=== PATIENT | female | born 1950 | race Caucasian/White ===

== ENCOUNTER 2017-09-13 08:40 | Outpatient (CLI) | payer MEDICARE, BC ==
--- NOTE | 2017-09-13 09:51 | RAD ---
LUMBAR SPINE THREE VIEWS: History: Low back pain. FINDINGS/IMPRESSION: No degenerative changes in the lumbar spine. No fracture, subluxation, or bony destruction is identif ied. POS: ADRIAN
== END 2017-09-13 08:41 | disposition home or self-care (01) ==
LOC: RAD-FRANK 08:40
PROVIDERS: ATTEND Nurse Practitioner Family
DX: M54.5 Low back pain (principal)
CPT/HCPCS: 72100

== ENCOUNTER 2018-02-08 08:57 | Outpatient (CLI) | payer MEDICARE, BC ==
--- NOTE | 2018-02-08 10:03 | RAD ---
PA AND LATERAL CHEST: History: Dyspnea on exertion. Comparison: 12-05-15 FINDINGS: The heart size is enlarged. There is obscuration of the right hemidiaphragm, also the diaphragm may b e slightly elevated. There is a right sided pleural effusion which is new as compared to the prior ex am. Some associated parenchymal change is probably atelectasis. The left lung is clear. IMPRESSION: 1. Cardiomegaly. 2. Development of some right sided pleural effusion and right lower lobe atelectasis. POS: C
== END 2018-02-08 08:58 | disposition home or self-care (01) ==
LOC: RAD-FRANK 08:57
PROVIDERS: ATTEND Nurse Practitioner Family
DX: R06.09 Other forms of dyspnea (principal); I51.7 Cardiomegaly; J90 Pleural effusion, not elsewhere classified; J98.11 Atelectasis
CPT/HCPCS: 71046

== ENCOUNTER 2018-02-09 06:00 | Inpatient (IN) | payer MEDICARE, BC ==
[2018-02-09 06:22] LABS: #Basophils 0.1 thou/uL (0.0-0.2); #Eosinphils 0.3 thou/uL (0.0-0.7); #Lymphocytes 1.7 thou/uL (1.20-3.40); #Monocytes 0.6 thou/uL (0.11-0.59); #Neutrophils 4.5 thou/uL (1.40-6.50); %Eosinophils 4.5 % (0.0-10.0); %Lymphocytes 23.6 % (21.0-51.0); %Monocytes 7.8 % (0.0-10.0); Mean Corpuscular HGB CONC 30.3 g/dL (32.0-36.0); Mean Corpuscular Hemoglobin 26.4 pg (27.0-31.0); Mean Corpuscular Volume 87.1 fL (78.0-98.0); Platelet Count 330 thou/uL (130-400); RBC Distribution Width 14.4 % (11.5-14.5); Red Blood Cell (RBC) Count 3.78 mill/uL (4.20-5.40); White Blood Cell (WBC) Count 7.2 thou/uL (4.8-10.8)
[2018-02-09 06:53] LABS: ALT (SGPT) 14 U/L (8-55); AST (SGOT) 19 U/L (5-34); Alkaline Phosphatase 117 U/L (40-150); Anion Gap 17 mmol/L (10-20); BUN (Urea Nitrogen) 8 mg/dL (9.8-20.1); Bilirubin, Total 0.4 mg/dL (0.2-1.2); Calc. Creatinine Clearance 0 mL/min (70-130); Calcium 9.3 mg/dL (7.8-10.44); Carbon Dioxide 24 mmol/L (23-31); Chloride 99 mmol/L (98-107); Estimated GFR-MDRD 43; Glucose 161 mg/dL (80-115); Sodium 136 mmol/L (136-145)
[2018-02-09 06:56] LABS: CKMB 1.2 ng/mL (0-6.6); Troponin I Less than 0.010 ng/mL (< 0.028)
[2018-02-09] MEDS ORDERED: Nitroglycerin 2% Ointment 1 INCH/1 GM Packet ONE (07:11)
[2018-02-09] MEDS ORDERED: Furosemide 40 MG/4 ML VIAL ONE (07:11)
--- NOTE | 2018-02-09 07:49 | RAD ---
PORTABLE CHEST: HISTORY: Dyspnea. COMPARISON: 02/08/2018. FINDINGS: Cardiomegaly. Vascular markings within normal range. Right-sided effusion again noted. No signific ant interval change noted. POS: H
[2018-02-09] MEDS ORDERED: HumaLOG 300 UNITS/3 ML VIAL SC PRN (08:25)
[2018-02-09] MEDS ORDERED: Dextrose 50% Abboject 50 ML SYRINGE SLOW IVP PRN (08:25)
[2018-02-09] MEDS ORDERED: Dextrose 5% in Water 1,000 ML IV PRN (08:25)
[2018-02-09] MEDS ORDERED: Benzonatate 100 MG CAP PO PRN (08:29)
[2018-02-09] MEDS ORDERED: Senokot 8.6 MG TAB PO PRN (08:29)
[2018-02-09] MEDS ORDERED: hydrALAZINE 20 MG/ML VIAL SLOW IVP PRN (08:29)
[2018-02-09] MEDS ORDERED: traMADol HCl 50 MG TAB PO PRN (08:29)
[2018-02-09] MEDS ORDERED: Nitroglycerin 0.4 MG TAB (25 Tab Bottle) SL PRN (08:29)
[2018-02-09] MEDS ORDERED: Mag-Al 1200 mg/1200 mg/30 ML UDCUP PO PRN (08:29)
[2018-02-09] MEDS ORDERED: cloNIDine 0.1 MG TAB PO PRN (08:29)
[2018-02-09] MEDS ORDERED: Lorazepam 1 MG TAB PO PRN (08:29)
[2018-02-09] MEDS ORDERED: Loratadine 10 MG TAB PO PRN (08:29)
[2018-02-09] MEDS ORDERED: Bisacodyl 5 MG TAB PO PRN (08:29)
[2018-02-09 09:51] LABS: Troponin I Less than 0.010 ng/mL (< 0.028)
[2018-02-09] MEDS: Enoxaparin Sodium 40 MG/0.4 ML SYRINGE SC SCH (10:51)
[2018-02-09 13:03] LABS: Troponin I Less than 0.010 ng/mL (< 0.028)
--- NOTE | 2018-02-09 13:32 | HP ---
DATE OF ADMISSION: 02/09/2018 PRIMARY CARE PHYSICIAN: JESUS Wolf PRIMARY INDUSTRIAL EQUIPMENT MECHANIC: Dr. Flaquito Sutton. PRIMARY ELECTRONIC PAGINATION SYSTEM OPERATOR: Dr. David. CHIEF COMPLAINT: Lower extremity swelling and chest pressure. HISTORY OF PRESENT ILLNESS: Ms. Peña is a very pleasant 67-year-old female with past medical hist ory of diabetes mellitus, hypertension, dyslipidemia, coronary artery disease as well as chronic diar bethel who presented to the ER with the above-mentioned complaint. History is mainly obtained by the p atient herself and electronic medical records have been reviewed. The patient was last admitted to [facility] facility more than over a year ago for diarrheal illness and dehydration. Ms. Peña reports that she has been doing fairly well since last year, but has been having chronic diarrhea again for the last month or so. She had one episode of blood in the stools. She is going a nywhere from once a day to multiple stools a day and they all loose watery. She has been seen by Dr. Sutton in the outpatient setting and some stool studies were done recently about a week ago. She went to see her primary care physician yesterday and the PCP found out that the patient had signi ficant swelling of her lower extremity in her face and she received a shot of Lasix and was instructe d to go to the emergency room yesterday. She came to the ER today as yesterday was her granddaughter 's birthday. She has been having some chest discomfort and heavy sensation in the chest for the last week or so and has noticed swelling in the last few days herself. She denies any other recent illne sses other than the diarrheal illness. No fever, chills, cough, orthopnea or PND. She has mild dysp esdras on exertion with ambulation. She has seen Dr. David about 1 year ago and has had 2 or 3 cardi ac catheterizations done in the past and reports that one of her blood vessels was blocked about 50%, but that was about 4 or 5 years ago. In the emergency room upon presentation, she was not hypoxic. Oxygen saturation was 100% on room air with blood pressure 142/86. EKG did not show any evidence of acute coronary syndrome or arrhythmias . Chest x-ray was rather unimpressive. She did have right-sided pleural effusion and cardiomegaly. Her lab showed normal cardiac enzymes, but her BNP was elevated to over 3000, which is a rather new for her. The patient was diagnosed with having congestive heart failure and was given Lasix. This i s a new symptom and diagnosis for the patient. She is being admitted for the same for now. PAST MEDICAL HISTORY: 1. Hypertension. 2. Dyslipidemia. 3. Diabetes mellitus type 2. 4. History of coronary artery disease. She does not have any cardiac stenting or bypass surgeries d one in the past. PAST SURGICAL HISTORY: Cholecystectomy, hysterectomy, gastric bypass surgery, and tonsillectomy. SOCIAL HISTORY: She lives alone at home, but her daughter lives very close by. She is otherwise ind ependent with ADLs and IADLs. She has no history of drug, tobacco or alcohol abuse. FAMILY HISTORY: Strong family history of heart disease. Mother had non-Hodgkin's lymphoma as well a s coronary artery disease. ALLERGIES: Include DARVON and DEMEROL. CURRENT MEDICATIONS: Not yet reconciled. As per the ER record, she is on the following medications: Metformin 1000 mg b.i.d., metoprolol succinate 25 once in the morning, Nexium 20 mg daily, aspirin 81 mg daily, Singulair 10 mg daily, iron 27 mg daily, CoQ10 daily, vitamin D3 daily, Onglyza 5 mg casey ly, amitriptyline 50 mg at bedtime, Zoloft 50 mg at bedtime, alprazolam 0.5 mg at bedtime, Zofran p.r .n., nitroglycerin sublingual p.r.n., ProAir p.r.n. inhalation. REVIEW OF SYSTEMS: A 12-point review of systems is done and is negative except for those mentioned i n the history and physical. LABORATORY DATA: CBC shows hemoglobin of 10, which is baseline for the patient, otherwise unremarkab le. Serum chemistry shows BUN 8, creatinine 1.23, blood sugar 161, troponin less than 0.010 x2 with a normal CK-MB. BNP is 3070. Chest x-ray by my review shows mild pulmonary vascular congestion, mil d to moderate right-sided pleural effusion and cardiomegaly. A 12-lead EKG by my review shows no arr hythmia, normal sinus rhythm is noticed. Nonspecific ST and T-wave changes are noticed. Evidence of LVH is noticed. PHYSICAL EXAMINATION: VITAL SIGNS: Most recent vital signs, temperature 98, pulse of 90, respirations 19, saturating 99% o n room air, blood pressure 115/85. GENERAL: No acute distress, awake, alert, oriented x3. She appears older than her stated age. HEENT: The patient has most of her teeth missing. Mucous membranes appear slightly dry. No orophar yngeal exudate or erythema. Head is normocephalic, atraumatic. Pupils equal, reactive to light and accommodation. NECK: Supple without any lymphadenopathy, JVD or bruit. CHEST: Evaluation shows some few basilar crackles on the left lung and decreased breath sound in the right lung base consistent with a pleural effusion. CARDIOVASCULAR: Regular rate and rhythm is regular without any murmur, rubs or gallops. ABDOMEN: Obese, soft, nontender, nondistended with positive bowel sounds. EXTREMITIES: Showed nonpitting edema bilaterally extending from her ankle to mid-calf. NEUROLOGIC: Nonfocal. SKIN: Free of any rashes or bruises. I feel warm and dry to touch. PSYCHIATRIC: Normal affect. IMPRESSION AND PLAN: 1. Acute congestive heart failure with right-sided pleural effusion and elevated BNP and symptoms of the same. At this time, the cause is unclear. It can be secondary to ischemic cardiomyopathy versu s possibly viral myocarditis given the recent diarrheal illness. No evidence of arrhythmia so far. She will be admitted and treated for congestive heart failure and we will get an echocardiogram. She will be diuresed with Lasix twice a day with close monitoring of I's and O's as well as renal status . We will continue to trend serial cardiac enzymes, though the likelihood of ACS is very low at this time. We will restart her home medication of aspirin and beta sp. Avoid ANGEL inhibitors at thi s time given acute renal insufficiency. We will consult Heart Failure team in the hospital as well a s dietitian. 2. Acute renal insufficiency, likely due to recent diarrheal illness. We will monitor her renal fun ction closely given the fact that she will be on diuretics for the next few days. Avoid any nephroto xic medications. 3. Acute on chronic diarrhea. The patient is under the care of Dr. Sutton and we will try to get the results of her most recent stool studies from his office. Currently, continue symptomatic treatment. The patient has no recent antibiotic use or recent travel. 4. Chronic anemia, microcytic and hypochromic in nature. Suspect iron deficiency anemia due to diet robert insufficiency. We will check her iron status as well as vitamin B12 and folic acid levels. Supp lement as indicated. 5. Diabetes mellitus type 2. We will put her on insulin sliding scale and do Accu-Cheks a.c. and at bedtime. Restart home medications with oral hypoglycemics once confirmed. 6. Hypertension, currently controlled. Once again, we will restart the home medications once confir med. 7. Code status: FULL. Resuscitation discussed with the patient in detail. 8. Deep venous thrombosis and gastrointestinal prophylaxis and p.r.n. medication orders. DISPOSITION: Ms. Peña is currently being admitted to the hospital with new onset of congestive he art failure. Estimated length of stay at least is 2-3 midnight at this time. Further management juan manuel l depend upon her clinical course.
[2018-02-09] MEDS: Furosemide 40 MG/4 ML VIAL SLOW IVP SCH (13:40)
[2018-02-09 13:49] LABS: Bilirubin Negative (Negative); Blood, Urine Negative (Negative); Clarity CLEAR (Clear); Glucose, Urine (Dipstick) Negative (Negative); Leukocyte Negative (Negative); Nitrite Negative (Negative); Protein, Urine (Dipstick) Negative (Neg-Trace); Specific Gravity, Urine 1.003 (1.002-1.036); Urobilinogen 0.2 mg/dL (0.2-1.0); pH, Urine 5.5 (5.0-9.0)
[2018-02-09] MEDS: Acetaminophen 325 MG TAB PO PRN (15:40)
--- NOTE | 2018-02-09 15:43 | CON ---
DATE OF CONSULTATION: 02/09/2018 CARDIOLOGY CONSULTATION REASON FOR CONSULTATION: Lower extremity edema. PRIMARY CARPET LAYER: Casey David M.D. HISTORY OF PRESENT ILLNESS: Ms. Peña is a very pleasant 67-year-old white female who comes to the hospital for lower extremity edema and shortness of breath. She has noticed for the last 6 weeks of progressively worsening edema. About 2 weeks ago, she started to get much more short of breath and she could not lay down on her back. She thought this was all related to her diagnosis of COPD and sh e was trying to do the inhalers, but these would not work, so she decided to come in for further eval uation. She was found to have a very elevated BNP. She has already been given Lasix and her lower e xtremity edema and abdominal swelling has decreased significantly. Her breathing is still somewhat o f an issue, but she feels much better than she did when she came in. Cardiology is being consulted f or evaluation of possible LV dysfunction. Dr. David has followed her for many years now. She has had a several heart catheterizations in the past. The last one was performed several years ago by Honorio David and she had just moderate disease on branching vessels. The last time she had a stress t est was in the office actually about a year ago 03/29/2017 and at that time, she had an EF of about 4 3%, but no reversible ischemia. She had been treated medically all this time. PAST MEDICAL HISTORY: 1. Hypertension. 2. Hyperlipidemia. 3. Type 2 diabetes. 4. Moderate coronary artery disease in the past. PAST SURGICAL HISTORY: 1. Cholecystectomy. 2. Hysterectomy. 3. Gastric bypass surgery. 4. Tonsillectomy. SOCIAL HISTORY: No alcohol, tobacco or drugs. FAMILY HISTORY: Heart disease positive in parents. OUTPATIENT MEDICATIONS: Include, 1. Metformin 1000 mg b.i.d. 2. Metoprolol succinate 25 mg a day. 3. Nexium 20 mg a day. 4. Aspirin 81 mg a day. 5. Singulair 10 mg a day. 6. Iron sulfate 27 mg a day. 7. Co-Q10. 8. Vitamin D3. 9. Onglyza 5 mg a day. 10. Amitriptyline 50 mg at bedtime. 11. Zoloft. 12. Alprazolam. 13. Zofran p.r.n. 14. Nitroglycerin sublingual p.r.n. 15. ProAir p.r.n. ALLERGIES: DARVON and DEMEROL. REVIEW OF SYSTEMS: A 12-point review of systems was done and it is all negative except stated in his tory of present illness. PHYSICAL EXAMINATION: VITAL SIGNS: Temperature 98.1, pulse 88, respiration rate 18, satting 95% on room air, blood pressur e 136/66. GENERAL: Awake, alert, oriented x3, in no distress. HEENT: Normocephalic. NECK: Supple. Cannot appreciate JVD due to body habitus. LUNGS: Have mild crackles at bilateral bases, but seemed to be mostly dry. ABDOMEN: Soft. EXTREMITIES: 1+ edema. SKIN: Warm and dry. LABORATORY DATA: Laboratory work was reviewed. CBC with a white count of 7, hemoglobin 10.0, hemato crit of 32.9, platelet count of 330. Chemistries unremarkable except for BUN of 8, creatinine 1.23, which is above her baseline 0.9. GFR was 43, glucose of 161. Troponin is negative x3. BNP was 3000 . UA was unremarkable. IMAGING DATA: EKG was reviewed. Chest x-ray was reviewed, cardiomegaly with right-sided effusion. ASSESSMENT: 1. New onset systolic versus diastolic versus combined heart failure. 2. Chronic obstructive pulmonary disease. 3. History of coronary artery disease, moderate in the past. PLAN: 1. Agree with continued IV Lasix. Keep an eye on creatinine and make sure it is not go any higher, but feeling much better after diuresis. 2. We will get echocardiogram to assess LV function and valvular structures. 3. Further recommendations are depending results of echocardiogram. Thank you for letting us to participate in the care of your patient. Dr. David, her primary Cardi ology will follow up in the morning.
[2018-02-09] MEDS: ALPRAZolam 0.5 MG TAB PO SCH (21:09)
[2018-02-09] MEDS: Ondansetron HCl/PF 4 MG/2 ML Vial IVP PRN (21:12)
[2018-02-09] MEDS ORDERED: Amitriptyline HCl 25 MG TAB PO SCH (21:15)
[2018-02-10] MEDS ORDERED: Ondansetron HCl/PF 4 MG/2 ML Vial ONE (09:56)
[2018-02-10] MEDS ORDERED: Montelukast Sodium 10 mg Tablet ONE (09:57)
[2018-02-10 12:45] LABS: Anion Gap 16 mmol/L (10-20); BUN (Urea Nitrogen) 8 mg/dL (9.8-20.1); Calc. Creatinine Clearance 76 mL/min (70-130); Calcium 8.4 mg/dL (7.8-10.44); Carbon Dioxide 26 mmol/L (23-31); Chloride 96 mmol/L (98-107); Estimated GFR-MDRD 44; Glucose 126 mg/dL (80-115); Iron 34 ug/dL (50-170); Iron Binding Capacity, Total 369 mcg/dL (265-497); Potassium 3.6 mmol/L (3.5-5.1); Sodium 134 mmol/L (136-145)
[2018-02-10] MEDS ORDERED: Communication Order-Pharmacy FS SCH (13:00)
--- NOTE | 2018-02-10 14:40 | PDOC.PN ---
- Subjective Encounter Start Date: 02/10/18 Encounter Start Time: 12:21 Subjective: pt feels better. urinating a lot and breathing easier -: no chest pain - Objective Resuscitation Status: Resuscitation Status FULL:Full Resuscitation MAR Reviewed: Yes Vital Signs & Weight: Vital Signs (12 hours) Temp Pulse Resp BP Pulse Ox 02/10/18 07:36 97.6 F 92 18 118/59 L 94 L Weight Weight 241 lb 4 oz I&O: 02/09/18 02/10/18 02/11/18 06:59 06:59 06:59 Intake Total 1868 Output Total 2700 Balance -832 Result Diagrams: 02/10/18 03:30 02/10/18 03:30 Additional Labs: Accuchecks 02/09/18 02/09/18 02/09/18 20:50 17:05 12:19 POC Glucose 173 H 158 H 171 H Phys Exam - Physical Examination Constitutional: NAD HEENT: PERRLA, moist MMs, sclera anicteric, oral pharynx no lesions Neck: no nodes, no JVD, supple, full ROM Respiratory: no wheezing, no rales, no rhonchi, clear to auscultation bilateral Cardiovascular: RRR, no significant murmur, no rub Gastrointestinal: soft, non-tender, no distention, positive bowel sounds Musculoskeletal: no edema, pulses present Neurological: non-focal, normal sensation, moves all 4 limbs Psychiatric: normal affect, A&O x 3 Skin: no rash Dx/Plan (1) Acute combined systolic and diastolic CHF, NYHA class 3 Code(s): I50.41 - ACUTE COMBINED SYSTOLIC AND DIASTOLIC (CONGESTIVE) HRT FAIL Status: Acute Comment: ECHO pending (2) HARINDER (acute kidney injury) Code(s): N17.9 - ACUTE KIDNEY FAILURE, UNSPECIFIED Status: Acute Comment: Labs pending from this morning (3) Chronic diarrhea Code(s): K52.9 - NONINFECTIVE GASTROENTERITIS AND COLITIS, UNSPECIFIED Status : Chronic Comment: Stool studies done as an Outpatient recently. reviwed with Dr Sutton.All negative for any infection (4) Chronic anemia Code(s): D64.9 - ANEMIA, UNSPECIFIED Status: Chronic (5) CAD (coronary artery disease) Code(s): I25.10 - ATHSCL HEART DISEASE OF [place] CORONARY ARTERY W/O ANG PCTRS Status: Chronic (6) DM2 (diabetes mellitus, type 2) Status: Chronic (7) HTN (hypertension) Code(s): I10 - ESSENTIAL (PRIMARY) HYPERTENSION Status: Chronic - Plan PT/OT, incentive spirometry, out of bed/ambulate, DVT proph w/heparin, DVT proph w/SCDs cont diuresis for ac CHF. Strict I/Os.ECHO, -: cardiology following -: cont ASA,BB,statin. No ching-i as BP lower side. repeat Cr pending also -: Duonebs prn,On RA.No COPD exacerbation -: Hd stable. * . labs in am Review of Systems - Review of Systems Constitutional: weakness. negative: fever, chills, sweats, malaise, other ENT: negative: Ear Pain, Ear Discharge, Nose Pain, Nose Discharge, Nose Congestion, Mouth Pain, Mouth Swelling, Throat Pain, Throat Swelling, Other Respiratory: SOB with Excertion. negative: Cough, Dry, Shortness of Breath, Hemoptysis, Pleuritic Pain, Sputum, Wheezing Cardiovascular: negative: chest pain, palpitations, orthopnea, paroxysmal nocturnal dyspnea, edema, light headedness, other Gastrointestinal: negative: Nausea, Vomiting, Abdominal Pain, Diarrhea, Constipation, Melena, Hematochezia, Other Genitourinary: negative: Dysuria, Frequency, Incontinence, Hematuria, Retention , Other Musculoskeletal: negative: Neck Pain, Shoulder Pain, Arm Pain, Back Pain, Hand Pain, Leg Pain, Foot Pain, Other Skin: negative: Rash, Lesions, Emmanuel, Bruising, Other Neurological: negative: Weakness, Numbness, Incoordination, Change in Speech, Confusion, Seizures, Other - Medications/Allergies Allergies/Adverse Reactions: Allergies Allergy/AdvReac Type Severity Reaction Status Date / Time meperidine [From Demerol] Allergy Intermediate Anaphylaxis Verified 02/09/18 09: 27 propoxyphene [From Darvon] Allergy Anaphylaxis Verified 02/09/18 09:27 Medications: Current Medications Acetaminophen (Tylenol) 650 mg PO Q4H PRN PRN Reason: Headache/Fever or Mild Pain Last Admin: 02/09/18 15:40 Dose: 650 mg Al Hydroxide/Mg Hydroxide (Maalox) 15 ml PO Q4H PRN PRN Reason: Heartburn or Indigestion Alogliptin Benzoate (Alogliptin) 12.5 mg PO DAILY [facility] Alprazolam (Xanax) 0.5 mg PO HS [facility] Last Admin: 02/09/18 21:09 Dose: 0.5 mg Amitriptyline HCl (Elavil) 50 mg PO HS [facility] Aspirin (Ecotrin) 81 mg PO DAILY [facility] Benzonatate (Tessalon) 100 mg PO Q4H PRN PRN Reason: Cough Bisacodyl (Dulcolax) 10 mg PO DAILYPRN PRN PRN Reason: Constipation Cholecalciferol (Vitamin D3) 1,000 units PO DAILY [facility] Clonidine (Catapres) 0.1 mg PO Q4H PRN PRN Reason: Systolic BP > 160 Coenzyme Q10 (Coenzyme Q10) 100 mg PO DAILY [facility] Dextrose/Water (Dextrose 50%) 25 gm SLOW IVP PRN PRN PRN Reason: Hypoglycemia Enoxaparin Sodium (Lovenox) 40 mg SC 0900 [facility] Last Admin: 02/09/18 10:51 Dose: 40 mg Ferrous Sulfate (Feosol) 325 mg PO DAILY [facility] Furosemide (Lasix) 40 mg SLOW IVP 0600,1400 [facility] Last Admin: 02/09/18 13:40 Dose: 40 mg Glucagon (Glucagon) 1 mg IM PRN PRN PRN Reason: Hypoglycemia Hydralazine HCl (Apresoline) 10 mg SLOW IVP Q4H PRN PRN Reason: Systolic BP > 170 Dextrose/Water (D5w) 1,000 mls @ 0 mls/hr IV .Q0M PRN PRN Reason: Hypoglycemia Insulin Human Lispro (Humalog) 0 units SC .MODERATE SLIDING SC PRN PRN Reason: Moderate Correctional Scale Insulin Human Lispro (Humalog) 0 units SC .BEDTIME SLIDING SC PRN PRN Reason: Bedtime Correctional Scale Loratadine (Claritin) 10 mg PO DAILYPRN PRN PRN Reason: Sinus Symptoms Lorazepam (Ativan) 1 mg PO Q4H PRN PRN Reason: Anxiety/Agitation Metoprolol Succinate (Toprol Xl) 50 mg PO DAILY [facility] Montelukast Sodium (Singulair) 10 mg PO DAILY [facility] Multivitamins (Theragran) 1 tab PO DAILY [facility] Nitroglycerin (Nitrostat) 0.4 mg SL Q5MIN PRN PRN Reason: Chest Pain Ondansetron HCl (Zofran) 4 mg IVP Q6H PRN PRN Reason: Nausea/Vomiting Last Admin: 02/09/18 21:12 Dose: 4 mg Pantoprazole Sodium (Protonix) 40 mg PO BID [place] Senna (Senokot) 2 tab PO HSPRN PRN PRN Reason: Constipation Sertraline HCl (Zoloft) 50 mg PO DAILY [facility] Sodium Chloride (Flush - Normal Saline) 10 ml IVF Q12HR [place] Last Admin: 02/09/18 21:09 Dose: 10 ml Sodium Chloride (Flush - Normal Saline) 10 ml IVF PRN PRN PRN Reason: Saline Flush Last Admin: 02/09/18 13:40 Dose: 10 ml Tramadol HCl (Ultram) 50 mg PO Q4H PRN PRN Reason: Moderate Pain (4-6)
[2018-02-10 15:06] LABS: Iron 34 ug/dL (50-170); Iron Binding Capacity, Total 369 mcg/dL (265-497)
[2018-02-10] MEDS: Alogliptin 6.25 MG TAB PO SCH ×2 (16:37→16:51)
[2018-02-10] MEDS: Montelukast Sodium 10 mg Tablet PO SCH (16:51)
[2018-02-10] MEDS: Multivit, Therapeutic 1 TAB PO SCH (16:51)
[2018-02-10] MEDS: Aspirin 81 mg Enteric Coated Tablet PO SCH (16:51)
[2018-02-10] MEDS: Ferrous Sulfate 325 MG TAB PO SCH (16:51)
[2018-02-10] MEDS: Enoxaparin Sodium 40 MG/0.4 ML SYRINGE SC SCH (16:51)
[2018-02-10] MEDS: Ubidecarenone 50 MG CAP PO SCH (16:52)
[2018-02-10] MEDS: Furosemide 40 MG/4 ML VIAL SLOW IVP SCH (16:53)
[2018-02-10] MEDS ORDERED: Carvedilol 6.25 MG TAB PO SCH (17:00)
[2018-02-10 17:36] LABS: Folate (Folic Acid) 14.7 ng/mL (7.0-31.4)
[2018-02-10 18:32] LABS: #Basophils 0.1 thou/uL (0.0-0.2); #Eosinphils 0.2 thou/uL (0.0-0.7); #Lymphocytes 1.4 thou/uL (1.20-3.40); #Monocytes 0.4 thou/uL (0.11-0.59); #Neutrophils 2.3 thou/uL (1.40-6.50); %Basophils 1.2 % (0.0-1.0); %Eosinophils 5.3 % (0.0-10.0); %Lymphocytes 31.6 % (21.0-51.0); %Monocytes 9.1 % (0.0-10.0); %Neutrophils 52.7 % (42.0-75.0); Hemoglobin 9.2 g/dL (12.0-16.0); Mean Corpuscular HGB CONC 30.7 g/dL (32.0-36.0); Mean Corpuscular Hemoglobin 26.6 pg (27.0-31.0); Mean Corpuscular Volume 86.6 fL (78.0-98.0); Mean Platelet Volume 8.6 fL (7.4-10.4); Platelet Count 289 thou/uL (130-400); RBC Distribution Width 14.3 % (11.5-14.5); Red Blood Cell (RBC) Count 3.44 mill/uL (4.20-5.40); White Blood Cell (WBC) Count 4.4 thou/uL (4.8-10.8)
[2018-02-10] MEDS: Acetaminophen 325 MG TAB PO PRN (19:37)
[2018-02-10] MEDS: ALPRAZolam 0.5 MG TAB PO SCH (21:00)
[2018-02-10] MEDS: Amitriptyline HCl 25 MG TAB PO SCH (21:00)
[2018-02-10] MEDS: Sacubitril 24.5 MG/Valsartan 25.5 MG TABLET PO SCH (21:00)
[2018-02-11] MEDS ORDERED: IRON SUCROSE COMPLEX 100 MG/5 ML SLOW IVP SCH (07:45)
[2018-02-11] MEDS ORDERED: Iron, Sodium Ferric Gluconate 250 MG in Sodium Chloride 0.9% 250 ML 250 ML IVPB SCH (08:00)
[2018-02-11] MEDS ORDERED: Spironolactone 25 MG TAB PO SCH (08:00)
[2018-02-11] MEDS: Multivit, Therapeutic 1 TAB PO SCH (09:14)
[2018-02-11] MEDS: Ferrous Sulfate 325 MG TAB PO SCH (09:14)
[2018-02-11] MEDS: Montelukast Sodium 10 mg Tablet PO SCH (09:14)
[2018-02-11] MEDS: Furosemide 40 MG TAB PO SCH (09:15)
[2018-02-11] MEDS: Carvedilol 3.125 MG TAB PO SCH ×2 (09:15→17:30)
[2018-02-11] MEDS: Enoxaparin Sodium 40 MG/0.4 ML SYRINGE SC SCH (09:15)
[2018-02-11] MEDS: Sacubitril 24.5 MG/Valsartan 25.5 MG TABLET PO SCH ×2 (09:15→20:40)
[2018-02-11] MEDS: Aspirin 81 mg Enteric Coated Tablet PO SCH (09:15)
[2018-02-11] MEDS: Ubidecarenone 50 MG CAP PO SCH (09:15)
[2018-02-11 09:19] LABS: Free T4 (Free Thyroxine) 0.89 ng/dL (0.70-1.48)
--- NOTE | 2018-02-11 10:18 | PDOC.CTH ---
<Sylvia Rodriguez - Last Filed: 02/11/18 10:16> Cardiology Progress Note - Subjective Stable without complaint. Walked to nurses' station today. BP on the low side, but patient denies any dizziness or weakness. Coreg decreased to 3.125mg BID today. - Objective Vital Signs Temp Pulse Resp BP Pulse Ox 02/11/18 03:11 98.0 F 75 16 99/55 L 97 02/11/18 00:00 80 91/50 L Admit Weight 241 lb 4 oz Weight 232 lb 4.8 oz 02/10/18 02/11/18 02/12/18 06:59 06:59 06:59 Intake Total 1868 800 Output Total 2700 1600 Balance -832 -800 - Physical Examination General/Neuro: alert & oriented x3 Neck: no JVD present Lungs: CTA Heart: RRR Abdomen: NT/ND Extremities: other: (Trace MIC) - Labs Result Diagrams: 02/10/18 03:30 02/10/18 03:30 Troponin/CKMB CK-MB (CK-2) 1.2 ng/mL (0-6.6) 02/09/18 06:08 Troponin I Less than 0.010 ng/mL (< 0.028) 02/09/18 12:19 - Assessment/Plan 1. Acute systolic CHF - EF 20-25% 2. CELLULAR EQUIPMENT REPAIRER - probable nonischemic 3. History of CAD - moderate disease noted by cath 2017 4. HTN Doing well. Continue monitoring. Discussed new decreased EF and risk of SCD. LifeVest ordered. Continue PT. Discussed diet. CHF education ordered. <Den Vyas - Last Filed: 02/11/18 19:35> Cardiology Progress Note - Objective Vital Signs Temp Pulse Pulse Pulse Resp BP BP 02/11/18 16:30 98.4 F 82 16 02/11/18 12:40 87 78 116/58 L 127/60 02/11/18 12:00 97.9 F 74 20 02/11/18 08:00 97.6 F 78 18 BP Pulse Ox Pulse Ox Pulse Ox 02/11/18 16:30 121/58 L 94 L 02/11/18 12:40 98 96 02/11/18 12:00 132/63 95 02/11/18 08:00 127/60 96 Admit Weight 241 lb 4 oz Weight 232 lb 4.8 oz 02/10/18 02/11/18 02/12/18 06:59 06:59 06:59 Intake Total 1868 800 120 Output Total 2700 1600 Balance -832 -800 120 - Labs Result Diagrams: 02/10/18 03:30 02/10/18 03:30 Troponin/CKMB CK-MB (CK-2) 1.2 ng/mL (0-6.6) 02/09/18 06:08 Troponin I Less than 0.010 ng/mL (< 0.028) 02/09/18 12:19 - Assessment/Plan Pt seen and examined. Agree with the above assessment D/c spironolactone and decrease BB Cath on tuesday
[2018-02-11] MEDS: Alogliptin 6.25 MG TAB PO SCH (11:58)
--- NOTE | 2018-02-11 13:36 | PDOC.PN ---
- Subjective Encounter Start Date: 02/11/18 Encounter Start Time: 13:34 Subjective: feels better.breathing much better.no chest pain -: feels wek - Objective Resuscitation Status: Resuscitation Status FULL:Full Resuscitation MAR Reviewed: Yes Vital Signs & Weight: Vital Signs (12 hours) Temp Pulse Pulse Pulse Resp BP BP 02/11/18 12:40 87 78 116/58 L 127/60 02/11/18 12:00 97.9 F 74 20 02/11/18 08:00 97.6 F 78 18 02/11/18 03:11 98.0 F 75 16 BP Pulse Ox Pulse Ox Pulse Ox 02/11/18 12:40 98 96 02/11/18 12:00 132/63 95 02/11/18 08:00 127/60 96 02/11/18 03:11 99/55 L 97 Weight Admit Weight 241 lb 4 oz Weight 232 lb 4.8 oz I&O: 02/10/18 02/11/18 02/12/18 06:59 06:59 06:59 Intake Total 1868 800 Output Total 2700 1600 Balance -832 -800 Result Diagrams: 02/10/18 03:30 02/10/18 03:30 Additional Labs: Accuchecks 02/11/18 02/11/18 02/10/18 11:21 05:29 20:18 POC Glucose 206 H 180 H 196 H 02/10/18 02/10/18 02/10/18 16:52 10:41 05:52 POC Glucose 172 H 184 H 133 H Laboratory Tests 01/02/13 11/06/16 11/07/16 08:15 15:36 06:32 Hgb 10.6 L 11.4 L 10.0 L Creatinine Iron TIBC % Saturation B-Natriuretic Peptide Vitamin B12 Folate TSH 3rd Generation 11/08/16 04/18/17 02/09/18 04:21 11:59 06:08 Hgb 10.0 L 10.0 L Creatinine 0.94 Iron TIBC % Saturation B-Natriuretic Peptide Vitamin B12 Folate TSH 3rd Generation 02/09/18 02/09/18 02/10/18 06:08 06:08 03:30 Hgb Creatinine 1.23 H 1.22 H Iron TIBC % Saturation B-Natriuretic Peptide 3070.9 H Vitamin B12 Folate TSH 3rd Generation 02/10/18 02/10/1802/10/18 03:30 03:30 03:30 Hgb 9.2 L Creatinine Iron TIBC % Saturation B-Natriuretic Peptide 2137.1 H Vitamin B12 Folate TSH 3rd Generation 6.1030 H 02/10/18 02/10/18 03:30 03:30 Hgb Creatinine Iron 34 L TIBC 369 % Saturation 8 L B-Natriuretic Peptide Vitamin B12 309 Folate 14.70 TSH 3rd Generation Radiology Reviewed by me: Yes (ECHO -EF 25-30%) Phys Exam - Physical Examination Constitutional: NAD HEENT: PERRLA, moist MMs, sclera anicteric, oral pharynx no lesions Neck: no nodes, no JVD, supple, full ROM Respiratory: no wheezing, no rales, no rhonchi, clear to auscultation bilateral Cardiovascular: RRR, no significant murmur, no rub Gastrointestinal: soft, non-tender, no distention, positive bowel sounds Musculoskeletal: no edema, pulses present Neurological: non-focal, normal sensation, moves all 4 limbs Psychiatric: normal affect, A&O x 3 Skin: no rash Dx/Plan (1) Acute combined systolic and diastolic CHF, NYHA class 3 Code(s): I50.41 - ACUTE COMBINED SYSTOLIC AND DIASTOLIC (CONGESTIVE) HRT FAIL Status: Acute Comment: ECHO with low EF of 20-25% (2) HARINDER (acute kidney injury) Code(s): N17.9 - ACUTE KIDNEY FAILURE, UNSPECIFIED Status: Acute (3) Chronic diarrhea Code(s): K52.9 - NONINFECTIVE GASTROENTERITIS AND COLITIS, UNSPECIFIED Status : Chronic Comment: Stool studies done as an Outpatient recently. reviwed with Dr Sutton.All negative for any infection (4) Chronic anemia Code(s): D64.9 - ANEMIA, UNSPECIFIED Status: Chronic Comment: Low iron levels (5) CAD (coronary artery disease) Code(s): I25.10 - ATHSCL HEART DISEASE OF [place] CORONARY ARTERY W/O ANG PCTRS Status: Chronic (6) DM2 (diabetes mellitus, type 2) Status: Chronic (7) HTN (hypertension) Code(s): I10 - ESSENTIAL (PRIMARY) HYPERTENSION Status: Chronic - Plan PT/OT, respiratory therapy, incentive spirometry, out of bed/ambulate, DVT proph w/SCDs cont diuresis. changed to PO.I/Os -: cont BB,Entresto.LifeVest prior to DC -: Cardiac rehab.salt restriction -: cath on tuesday -: am labs * . Review of Systems - Review of Systems Constitutional: weakness, malaise. negative: fever, chills, sweats, other ENT: negative: Ear Pain, Ear Discharge, Nose Pain, Nose Discharge, Nose Congestion, Mouth Pain, Mouth Swelling, Throat Pain, Throat Swelling, Other Respiratory: SOB with Excertion. negative: Cough, Dry, Shortness of Breath, Hemoptysis, Pleuritic Pain, Sputum, Wheezing Cardiovascular: negative: chest pain, palpitations, orthopnea, paroxysmal nocturnal dyspnea, edema, light headedness, other Gastrointestinal: negative: Nausea, Vomiting, Abdominal Pain, Diarrhea, Constipation, Melena, Hematochezia, Other Genitourinary: negative: Dysuria, Frequency, Incontinence, Hematuria, Retention , Other Musculoskeletal: negative: Neck Pain, Shoulder Pain, Arm Pain, Back Pain, Hand Pain, Leg Pain, Foot Pain, Other Neurological: negative: Weakness, Numbness, Incoordination, Change in Speech, Confusion, Seizures, Other - Medications/Allergies Allergies/Adverse Reactions: Allergies Allergy/AdvReac Type Severity Reaction Status Date / Time meperidine [From Demerol] Allergy Intermediate Anaphylaxis Verified 02/09/18 09: 27 propoxyphene [From Darvon] Allergy Anaphylaxis Verified 02/09/18 09:27 Medications: Current Medications Acetaminophen (Tylenol) 650 mg PO Q4H PRN PRN Reason: Headache/Fever or Mild Pain Last Admin: 02/10/18 19:37 Dose: 650 mg Al Hydroxide/Mg Hydroxide (Maalox) 15 ml PO Q4H PRN PRN Reason: Heartburn or Indigestion Alogliptin Benzoate (Alogliptin) 12.5 mg PO DAILY [facility] Stop: 02/12/18 23:59 Last Admin: 02/11/18 11:58 Dose: 12.5 mg Alogliptin Benzoate (Alogliptin) 12.5 mg PO DAILY [facility] Last Admin: 02/10/18 16:37 Dose: 12.5 mg Alprazolam (Xanax) 0.5 mg PO HS [facility] Last Admin: 02/10/18 21:00 Dose: 0.5 mg Amitriptyline HCl (Elavil) 50 mg PO HS [facility] Last Admin: 02/10/18 21:00 Dose: 50 mg Aspirin (Ecotrin) 81 mg PO DAILY [facility] Last Admin: 02/11/18 09:15 Dose: 81 mg Benzonatate (Tessalon) 100 mg PO Q4H PRN PRN Reason: Cough Bisacodyl (Dulcolax) 10 mg PO DAILYPRN PRN PRN Reason: Constipation Carvedilol (Coreg) 3.125 mg PO BID-[facility] Last Admin: 02/11/18 09:15 Dose: 3.125 mg Cholecalciferol (Vitamin D3) 1,000 units PO DAILY [facility] Last Admin: 02/11/18 09:14 Dose: 1,000 units Clonidine (Catapres) 0.1 mg PO Q4H PRN PRN Reason: Systolic BP > 160 Coenzyme Q10 (Coenzyme Q10) 100 mg PO DAILY [facility] Last Admin: 02/11/18 09:15 Dose: 100 mg Dextrose/Water (Dextrose 50%) 25 gm SLOW IVP PRN PRN PRN Reason: Hypoglycemia Enoxaparin Sodium (Lovenox) 40 mg SC 0900 [facility] Stop: 02/12/18 21:00 Last Admin: 02/11/18 09:15 Dose: 40 mg Ferrous Sulfate (Feosol) 325 mg PO DAILY [facility] Last Admin: 02/11/18 09:14 Dose: 325 mg Furosemide (Lasix) 40 mg PO DAILY-[facility] Last Admin: 02/11/18 09:15 Dose: 40 mg Glucagon (Glucagon) 1 mg IM PRN PRN PRN Reason: Hypoglycemia Hydralazine HCl (Apresoline) 10 mg SLOW IVP Q4H PRN PRN Reason: Systolic BP > 170 Dextrose/Water (D5w) 1,000 mls @ 0 mls/hr IV .Q0M PRN PRN Reason: Hypoglycemia Insulin Human Lispro (Humalog) 0 units SC .MODERATE SLIDING SC PRN PRN Reason: Moderate Correctional Scale Insulin Human Lispro (Humalog) 0 units SC .BEDTIME SLIDING SC PRN PRN Reason: Bedtime Correctional Scale Loratadine (Claritin) 10 mg PO DAILYPRN PRN PRN Reason: Sinus Symptoms Lorazepam (Ativan) 1 mg PO Q4H PRN PRN Reason: Anxiety/Agitation Miscellaneous Information (Communication Order-Pharmacy) 0 each FS ONE [facility] Stop: 02/13/18 21:00 Montelukast Sodium (Singulair) 10 mg PO DAILY [facility] Last Admin: 02/11/18 09:14 Dose: 10 mg Multivitamins (Theragran) 1 tab PO DAILY [facility] Last Admin: 02/11/18 09:14 Dose: 1 tab Nitroglycerin (Nitrostat) 0.4 mg SL Q5MIN PRN PRN Reason: Chest Pain Ondansetron HCl (Zofran) 4 mg IVP Q6H PRN PRN Reason: Nausea/Vomiting Last Admin: 02/09/18 21:12 Dose: 4 mg Pantoprazole Sodium (Protonix) 40 mg PO BID [facility] Last Admin: 02/11/18 09:14 Dose: 40 mg Sacubitril/Valsartan (Entresto 24.5 Mg-25.5 Mg Tablet) 1 tab PO BID [facility] Last Admin: 02/11/18 09:15 Dose: 1 tab Senna (Senokot) 2 tab PO HSPRN PRN PRN Reason: Constipation Sertraline HCl (Zoloft) 50 mg PO DAILY [facility] Last Admin: 02/11/18 09:14 Dose: 50 mg Sodium Chloride (Flush - Normal Saline) 10 ml IVF Q12HR [facility] Last Admin: 02/11/18 09:16 Dose: 10 ml Sodium Chloride (Flush - Normal Saline) 10 ml IVF PRN PRN PRN Reason: Saline Flush Last Admin: 02/09/18 13:40 Dose: 10 ml Tramadol HCl (Ultram) 50 mg PO Q4H PRN PRN Reason: Moderate Pain (4-6)
[2018-02-11] MEDS: HumaLOG 300 UNITS/3 ML VIAL SC PRN (13:44)
[2018-02-11] MEDS: Acetaminophen 325 MG TAB PO PRN (17:34)
[2018-02-11] MEDS: ALPRAZolam 0.5 MG TAB PO SCH (20:40)
[2018-02-11] MEDS: Amitriptyline HCl 25 MG TAB PO SCH (20:41)
[2018-02-12 05:40] LABS: #Basophils 0.1 thou/uL (0.0-0.2); #Eosinphils 0.3 thou/uL (0.0-0.7); #Lymphocytes 1.5 thou/uL (1.20-3.40); #Monocytes 0.5 thou/uL (0.11-0.59); %Basophils 1.6 % (0.0-1.0); %Eosinophils 5.8 % (0.0-10.0); %Lymphocytes 27.8 % (21.0-51.0); %Monocytes 9.1 % (0.0-10.0); %Neutrophils 55.7 % (42.0-75.0); Hemoglobin 10.5 g/dL (12.0-16.0); Mean Corpuscular HGB CONC 30.7 g/dL (32.0-36.0); Mean Corpuscular Hemoglobin 26.7 pg (27.0-31.0); Mean Corpuscular Volume 86.9 fL (78.0-98.0); Mean Platelet Volume 8.5 fL (7.4-10.4); Platelet Count 306 thou/uL (130-400); RBC Distribution Width 14.3 % (11.5-14.5); Red Blood Cell (RBC) Count 3.93 mill/uL (4.20-5.40); White Blood Cell (WBC) Count 5.3 thou/uL (4.8-10.8)
[2018-02-12 05:53] LABS: Anion Gap 14 mmol/L (10-20); BUN (Urea Nitrogen) 8 mg/dL (9.8-20.1); Calc. Creatinine Clearance 72 mL/min (70-130); Calcium 8.3 mg/dL (7.8-10.44); Carbon Dioxide 29 mmol/L (23-31); Chloride 97 mmol/L (98-107); Estimated GFR-MDRD 43; Glucose 147 mg/dL (80-115); Potassium 3.6 mmol/L (3.5-5.1); Sodium 136 mmol/L (136-145)
[2018-02-12] MEDS ORDERED: Communication Order-Pharmacy FS SCH (08:15)
[2018-02-12] MEDS: Multivit, Therapeutic 1 TAB PO SCH (09:15)
[2018-02-12] MEDS: Enoxaparin Sodium 40 MG/0.4 ML SYRINGE SC SCH (09:15)
[2018-02-12] MEDS: Carvedilol 3.125 MG TAB PO SCH ×2 (09:15→16:30)
[2018-02-12] MEDS: Aspirin 81 mg Enteric Coated Tablet PO SCH (09:15)
[2018-02-12] MEDS: Ferrous Sulfate 325 MG TAB PO SCH (09:15)
[2018-02-12] MEDS: Montelukast Sodium 10 mg Tablet PO SCH (09:15)
[2018-02-12] MEDS: Ubidecarenone 50 MG CAP PO SCH (09:16)
[2018-02-12] MEDS: Sacubitril 24.5 MG/Valsartan 25.5 MG TABLET PO SCH ×2 (09:16→19:57)
[2018-02-12] MEDS: Alogliptin 6.25 MG TAB PO SCH (09:16)
[2018-02-12] MEDS: Furosemide 40 MG TAB PO SCH (09:16)
[2018-02-12] MEDS: Sodium Chloride 0.9% 1,000 ML IV SCH ×2 (09:18→18:37)
--- NOTE | 2018-02-12 09:22 | PDOC.CTH ---
Cardiology Progress Note - Subjective No complaints today. Doing well. - Objective Vital Signs Temp Pulse Resp BP Pulse Ox 02/12/18 08:00 94 L 02/12/18 07:30 97.8 F 82 16 122/58 L 94 L 02/12/18 04:00 98 F 104 H 16 96/46 L 94 L 02/12/18 00:00 107 H 18 Admit Weight 241 lb 4 oz Weight 228 lb 02/11/18 02/12/18 02/13/18 06:59 06:59 06:59 Intake Total 800 1090 Output Total 1600 3200 Balance -800 -2110 - Physical Examination General/Neuro: alert & oriented x3 Neck: no JVD present Lungs: CTA Heart: RRR Abdomen: NT/ND Extremities: other: (no edema) - Telemetry Telemetry Rhythm: SR - Labs Result Diagrams: 02/12/18 05:11 02/12/18 05:11 Troponin/CKMB CK-MB (CK-2) 1.2 ng/mL (0-6.6) 02/09/18 06:08 Troponin I Less than 0.010 ng/mL (< 0.028) 02/09/18 12:19 - Assessment/Plan 1. Acute systolic CHF - EF 20-25% 2. 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 History of CAD - moderate disease noted by cath 2016 4. HTN (currently hypotensive, but asymptomatic) Plan for LHC in the morning. LifeVest ordered. Continue current medications.
--- NOTE | 2018-02-12 10:48 | PDOC.PN ---
- Subjective Encounter Start Date: 02/12/18 Encounter Start Time: 10:46 Subjective: feels a little SOB today but feels better otherwise -: no CP -: feels leg swelling is better - Objective Resuscitation Status: Resuscitation Status FULL:Full Resuscitation MAR Reviewed: Yes Vital Signs & Weight: Vital Signs (12 hours) Temp Pulse Resp BP Pulse Ox 02/12/18 08:00 94 L 02/12/18 07:30 97.8 F 82 16 122/58 L 94 L 02/12/18 04:00 98 F 104 H 16 96/46 L 94 L 02/12/18 00:00 107 H 18 Weight Admit Weight 241 lb 4 oz Weight 228 lb I&O: 02/11/18 02/12/18 02/13/18 06:59 06:59 06:59 Intake Total 800 1090 Output Total 1600 3200 Balance -800 -2110 Result Diagrams: 02/12/18 05:11 02/12/18 05:11 Additional Labs: Accuchecks 02/12/18 02/11/18 02/11/18 05:46 20:40 16:53 POC Glucose 159 H 157 H 152 H 02/11/18 11:21 POC Glucose 206 H Laboratory Tests 04/18/17 02/09/18 02/10/18 11:59 06:08 03:30 Creatinine 0.94 1.23 H 1.22 H 02/12/18 05:11 Creatinine 1.24 H Phys Exam - Physical Examination Constitutional: NAD HEENT: PERRLA, moist MMs, sclera anicteric, oral pharynx no lesions Neck: no nodes, no JVD, supple, full ROM Respiratory: no wheezing, no rhonchi, clear to auscultation bilateral few bibasilar crackles Cardiovascular: RRR, no significant murmur, no rub, gallop, irregular Gastrointestinal: soft, non-tender, no distention, positive bowel sounds Musculoskeletal: no edema, pulses present Neurological: non-focal, normal sensation, moves all 4 limbs Psychiatric: normal affect, A&O x 3 Dx/Plan (1) Acute combined systolic and diastolic CHF, NYHA class 3 Code(s): I50.41 - ACUTE COMBINED SYSTOLIC AND DIASTOLIC (CONGESTIVE) HRT FAIL Status: Acute Comment: ECHO with low EF of 20-25% (2) HARINDER (acute kidney injury) Code(s): N17.9 - ACUTE KIDNEY FAILURE, UNSPECIFIED Status: Acute (3) Chronic diarrhea Code(s): K52.9 - NONINFECTIVE GASTROENTERITIS AND COLITIS, UNSPECIFIED Status : Chronic Comment: Stool studies done as an Outpatient recently. reviwed with Dr Sutton.All negative for any infection (4) Chronic anemia Code(s): D64.9 - ANEMIA, UNSPECIFIED Status: Chronic Comment: Low iron levels (5) CAD (coronary artery disease) Code(s): I25.10 - ATHSCL HEART DISEASE OF [place] CORONARY ARTERY W/O ANG PCTRS Status: Chronic (6) DM2 (diabetes mellitus, type 2) Status: Chronic (7) HTN (hypertension) Code(s): I10 - ESSENTIAL (PRIMARY) HYPERTENSION Status: Chronic - Plan PT/OT, out of bed/ambulate, DVT proph w/SCDs Cont diuresis. cont BB, Entresto,ASA. -: Cardiac Cath in morning -: life Vest to be fitted prior to DC. -: HD stable. -: Strict I/Os. monitor renal Fx w diuresis. AM labs * . Review of Systems - Review of Systems Constitutional: weakness. negative: fever, chills, sweats, malaise, other ENT: negative: Ear Pain, Ear Discharge, Nose Pain, Nose Discharge, Nose Congestion, Mouth Pain, Mouth Swelling, Throat Pain, Throat Swelling, Other Respiratory: SOB with Excertion. negative: Cough, Dry, Shortness of Breath, Hemoptysis, Pleuritic Pain, Sputum, Wheezing Cardiovascular: negative: chest pain, palpitations, orthopnea, paroxysmal nocturnal dyspnea, edema, light headedness, other Gastrointestinal: negative: Nausea, Vomiting, Abdominal Pain, Diarrhea, Constipation, Melena, Hematochezia, Other Genitourinary: negative: Dysuria, Frequency, Incontinence, Hematuria, Retention , Other Musculoskeletal: negative: Neck Pain, Shoulder Pain, Arm Pain, Back Pain, Hand Pain, Leg Pain, Foot Pain, Other Skin: negative: Rash, Lesions, Emmanuel, Bruising, Other Neurological: negative: Weakness, Numbness, Incoordination, Change in Speech, Confusion, Seizures, Other - Medications/Allergies Allergies/Adverse Reactions: Allergies Allergy/AdvReac Type Severity Reaction Status Date / Time meperidine [From Demerol] Allergy Intermediate Anaphylaxis Verified 02/09/18 09: 27 propoxyphene [From Darvon] Allergy Anaphylaxis Verified 02/09/18 09:27 Medications: Current Medications Acetaminophen (Tylenol) 650 mg PO Q4H PRN PRN Reason: Headache/Fever or Mild Pain Last Admin: 02/11/18 17:34 Dose: 650 mg Al Hydroxide/Mg Hydroxide (Maalox) 15 ml PO Q4H PRN PRN Reason: Heartburn or Indigestion Alogliptin Benzoate (Alogliptin) 12.5 mg PO DAILY [facility] Stop: 02/12/18 23:59 Last Admin: 02/12/18 09:16 Dose: 12.5 mg Alogliptin Benzoate (Alogliptin) 12.5 mg PO DAILY [facility] Last Admin: 02/10/18 16:37 Dose: 12.5 mg Alprazolam (Xanax) 0.5 mg PO HS [facility] Last Admin: 02/11/18 20:40 Dose: 0.5 mg Amitriptyline HCl (Elavil) 50 mg PO HS [facility] Last Admin: 02/11/18 20:41 Dose: 50 mg Aspirin (Ecotrin) 81 mg PO DAILY [facility] Last Admin: 02/12/18 09:15 Dose: 81 mg Benzonatate (Tessalon) 100 mg PO Q4H PRN PRN Reason: Cough Bisacodyl (Dulcolax) 10 mg PO DAILYPRN PRN PRN Reason: Constipation Carvedilol (Coreg) 3.125 mg PO BID-[facility] Last Admin: 02/12/18 09:15 Dose: 3.125 mg Cholecalciferol (Vitamin D3) 1,000 units PO DAILY [facility] Last Admin: 02/12/18 09:15 Dose: 1,000 units Clonidine (Catapres) 0.1 mg PO Q4H PRN PRN Reason: Systolic BP > 160 Coenzyme Q10 (Coenzyme Q10) 100 mg PO DAILY [facility] Last Admin: 02/12/18 09:16 Dose: 100 mg Dextrose/Water (Dextrose 50%) 25 gm SLOW IVP PRN PRN PRN Reason: Hypoglycemia Enoxaparin Sodium (Lovenox) 40 mg SC 0900 [facility] Stop: 02/12/18 21:00 Last Admin: 02/12/18 09:15 Dose: 40 mg Ferrous Sulfate (Feosol) 325 mg PO DAILY [facility] Last Admin: 02/12/18 09:15 Dose: 325 mg Furosemide (Lasix) 40 mg PO DAILY[facility] Last Admin: 02/12/18 09:16 Dose: 40 mg Glucagon (Glucagon) 1 mg IM PRN PRN PRN Reason: Hypoglycemia Hydralazine HCl (Apresoline) 10 mg SLOW IVP Q4H PRN PRN Reason: Systolic BP > 170 Dextrose/Water (D5w) 1,000 mls @ 0 mls/hr IV .Q0M PRN PRN Reason: Hypoglycemia Sodium Chloride (Normal Saline 0.9%) 1,000 mls @ 100 mls/hr IV .Q10H [facility] Last Admin: 02/12/18 09:18 Dose: Not Given Insulin Human Lispro (Humalog) 0 units SC .MODERATE SLIDING SC PRN PRN Reason: Moderate Correctional Scale Last Admin: 02/11/18 13:44 Dose: 4 unit Insulin Human Lispro (Humalog) 0 units SC .BEDTIME SLIDING SC PRN PRN Reason: Bedtime Correctional Scale Loratadine (Claritin) 10 mg PO DAILYPRN PRN PRN Reason: Sinus Symptoms Lorazepam (Ativan) 1 mg PO Q4H PRN PRN Reason: Anxiety/Agitation Miscellaneous Information (Communication Order-Pharmacy) 0 each FS [facility] Stop: 02/13/18 21:00 Miscellaneous Information (Communication Order-Pharmacy) 0 each [facility] Montelukast Sodium (Singulair) 10 mg PO DAILY [facility] Last Admin: 02/12/18 09:15 Dose: 10 mg Multivitamins (Theragran) 1 tab PO DAILY [facility] Last Admin: 02/12/18 09:15 Dose: 1 tab Nitroglycerin (Nitrostat) 0.4 mg SL Q5MIN PRN PRN Reason: Chest Pain Ondansetron HCl (Zofran) 4 mg IVP Q6H PRN PRN Reason: Nausea/Vomiting Last Admin: 02/09/18 21:12 Dose: 4 mg Pantoprazole Sodium (Protonix) 40 mg PO BID [facility] Last Admin: 02/12/18 09:17 Dose: 40 mg Sacubitril/Valsartan (Entresto 24.5 Mg-25.5 Mg Tablet) 1 tab PO BID [facility] Last Admin: 02/12/18 09:16 Dose: 1 tab Senna (Senokot) 2 tab PO HSPRN PRN PRN Reason: Constipation Sertraline HCl (Zoloft) 50 mg PO DAILY [facility] Last Admin: 02/12/18 09:16 Dose: 50 mg Sodium Chloride (Flush - Normal Saline) 10 ml IVF Q12HR [facility] Last Admin: 02/12/18 09:17 Dose: 10 ml Sodium Chloride (Flush - Normal Saline) 10 ml IVF PRN PRN PRN Reason: Saline Flush Last Admin: 02/09/18 13:40 Dose: 10 ml Tramadol HCl (Ultram) 50 mg PO Q4H PRN PRN Reason: Moderate Pain (4-6)
[2018-02-12] MEDS: Acetaminophen 325 MG TAB PO PRN (14:39)
[2018-02-12] MEDS: ALPRAZolam 0.5 MG TAB PO SCH (19:57)
[2018-02-12] MEDS: Amitriptyline HCl 25 MG TAB PO SCH (19:57)
[2018-02-13] MEDS: Ubidecarenone 50 MG CAP PO SCH (05:11)
[2018-02-13] MEDS: Furosemide 40 MG TAB PO SCH (05:11)
[2018-02-13] MEDS: Sodium Chloride 0.9% 1,000 ML IV SCH ×2 (05:11→15:15)
[2018-02-13] MEDS: Montelukast Sodium 10 mg Tablet PO SCH (05:12)
[2018-02-13] MEDS: Ferrous Sulfate 325 MG TAB PO SCH (05:12)
[2018-02-13] MEDS: Multivit, Therapeutic 1 TAB PO SCH (05:12)
[2018-02-13] MEDS: Sacubitril 24.5 MG/Valsartan 25.5 MG TABLET PO SCH (05:12)
[2018-02-13] MEDS: Carvedilol 3.125 MG TAB PO SCH (05:13)
[2018-02-13] MEDS: Aspirin 81 mg Enteric Coated Tablet PO SCH (05:13)
[2018-02-13 06:13] LABS: Anion Gap 13 mmol/L (10-20); BUN (Urea Nitrogen) 8 mg/dL (9.8-20.1); Calc. Creatinine Clearance 87 mL/min (70-130); Carbon Dioxide 31 mmol/L (23-31); Chloride 97 mmol/L (98-107); Estimated GFR-MDRD 55; Glucose 157 mg/dL (80-115); Potassium 3.2 mmol/L (3.5-5.1); Sodium 138 mmol/L (136-145)
[2018-02-13] MEDS ORDERED: Lidocaine 1% (PF) 30 ML VIAL ONE (08:35)
[2018-02-13] MEDS ORDERED: Midazolam HCl 2 mg/2 ml Vial ONE (09:12)
[2018-02-13] MEDS ORDERED: Metoprolol Tartrate 5 MG/5 ML VIAL ONE ×2 (09:24→09:27)
[2018-02-13] MEDS ORDERED: Nitroglycerin 0.4 MG TAB (25 Tab Bottle) SL PRN (09:43)
[2018-02-13] MEDS ORDERED: Sodium Chloride 0.9% 200 ML IV PRN (09:45)
[2018-02-13] MEDS ORDERED: Digoxin 0.5 MG/2 ML AMP ONE (09:46)
[2018-02-13] MEDS ORDERED: Iopamidol 370 76% 100 ML VIAL ONE (12:15)
[2018-02-13 12:23] VITALS: BMI 41.5
--- NOTE | 2018-02-13 12:59 | CON ---
DATE OF CONSULTATION: 02/13/2018 REFERRING PHYSICIAN: Dr. Casey David HISTORY OF PRESENT ILLNESS: I am seeing Ms. 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 Episodic atrial tachycardia with rates up to 110 beats per minute. 2. Acute heart rate exacerbation with chronic nonischemic cardiomyopathy to a remote history of is r educed LVEF to 43% in 03/2017. Now on 02/10/2018 LVEF is 20-25%. Moderately enlarged right ventricl e, moderate mitral regurgitation, moderate tricuspid regurgitation, elevated pulmonary pressures. A. Left heart catheterization today demonstrates a nonocclusive coronary artery disease only. 3. History of chronic obstructive pulmonary disease. 4. Risk factors including hypertension, hyperlipidemia, type 2 diabetes. 5. History of gastric bypass surgery in the past with weight loss. 6. Strong family history of sudden cardiac of 4 aunts, uncles and grandparents. Also cardiomy opathy and ICD use in the past of her mother. ALLERGIES: DARVON and DEMEROL. MEDICATIONS AT HOME: Included metformin, metoprolol, Nexium, aspirin, Singulair, iron sulfate, Sarah zyme Q10, vitamin D, Onglyza, amitriptyline, Zoloft, alprazolam, Zofran, nitroglycerin, and ProAir p. r.n. SUBJECTIVE: Ms. Peña is here due to progressive edema and dyspnea for about 2 weeks prior to admi ssion. She was found to have markedly elevated BNP, was diuresed and now is feeling better. She und erwent left heart catheterization by Dr. David to evaluate her coronary artery status. Hence the worsening of systolic function as documented by the serial echocardiograms. While on monitor, though she was also noted to have episodic rapid heartbeats with rates of 107 beats per minute because of s udden onset and offset, currently back in sinus rhythm, no atrial fibrillation and true flutters were documented. Currently, feeling no PND or orthopnea. No fever, chills, or cough. No stroke-like symptoms, no ashly rological deficits. REVIEW OF SYSTEMS: The rest of the twelve point system otherwise unremarkable. PAST MEDICAL HISTORY: As above. SOCIAL HISTORY: The patient denies smoking, ETOH or drug abuse. PAST SURGICAL HISTORY: Significant for cholecystectomy, hysterectomy, gastric bypass surgery, tonsil lectomy. FAMILY HISTORY: Significant for heart disease in the parents. Mother of old age after multiple shocks from the defibrillator which she received for cardiomyopathy. Also 4 aunts or uncles of sudden cardiac and recently a cousin as well of sudden cardiac . OBJECTIVE DATA: VITAL SIGNS: Blood pressure 135/63, heart rate 87, respirations 17, temperature 98.2 degrees Fahrenh eit. GENERAL: She is an alert and oriented woman in no apparent distress. NECK: Supple. Jugular veins now are not distended. CHEST: Coarse without crackles. CARDIOVASCULAR: Heart sounds are regular to rate and rhythm. No murmur or gallop. ABDOMEN: Benign. Bowel sounds are positive. EXTREMITIES: Lower extremities without edema, clubbing or cyanosis. Pulses are adequate. NEUROLOGIC: Patient nonfocal. MUSCULOSKELETAL: No joint deformity seen. SKIN: Without rash. DATABASE: EKG on admission reveals sinus tachycardia with a rate of 94 beats per minute, nonspecific ST-T changes are seen. Subsequent EKG from February 11, 2018 reveals an atrial tachycardia. PVs are difficult to visualize, cannot completely rule out sinus tachycardia in origin. History though revi ewed, relatively sudden onset of rapid heartbeats with clear P waves preceding the initiation of the tachycardia. ASSESSMENT AND PLAN: Ms. Peña is a pleasant 67-year-old woman who likely has a familiar appearing nonischemic cardiomyopathy, now with severely reduced LV function. Also, she has atrial tachyarrhyt hmia's, which are mildly symptomatic with max rates about 110. I discussed these issues with her. Hence the worsening LV function. Dr. David is planning to opt imize her medical management and a LifeVest is recommended with severely reduced LV function and past family history. If the LV function does not improve with optimal medical management in 3 months a f ollowup echocardiogram still below 35%, she would likely benefit from a prophylactic ICD implantation . The atrial tachycardia documented seems to be relatively benign. At this point, I would manage conse rvatively likely escalating dose of beta blockers will be necessary for her care. Monitor for bradyc ardia in this regard. At this point, I would hold off on antiarrhythmic agents unless worsening symp toms are seen. If ICD implantation is eventually necessary, atrial lead addition will be likely help ful to monitor and treat some of these arrhythmias. I would like to see this lady back especially after a 3-month followup echocardiogram to evaluate her for a risk of ventricular arrhythmias and treat her for atrial tachycardia as necessary. For now, again escalating dose of beta blockers are advised. Once LV function improved and/or ICD is in place, we could consider sotalol versus amiodarone or even Tikosyn as anti-arrhythmic options. Also at that point ablation therapy also could be considered. These issues were discussed with the macrina markham. Will notify Dr. David. Family is aware.
[2018-02-13] MEDS: Ondansetron HCl/PF 4 MG/2 ML Vial IVP PRN (14:30)
--- NOTE | 2018-02-13 14:32 | PDOC.PN ---
- Subjective Encounter Start Date: 02/13/18 Encounter Start Time: 14:31 Subjective: feels well. discussed the Cath results with her -: no CP/SOB.no fever/chills - Objective Resuscitation Status: Resuscitation Status FULL:Full Resuscitation MAR Reviewed: Yes Vital Signs & Weight: Vital Signs (12 hours) Temp Pulse Resp BP Pulse Ox 02/13/18 11:38 98.2 F 87 17 135/63 98 02/13/18 08:05 98.0 F 114 H 16 128/75 95 02/13/18 02:53 98.0 F 114 H 20 127/58 L 92 L Weight Admit Weight 241 lb 4 oz Weight 227 lb 6.4 oz I&O: 02/12/18 02/13/18 02/14/18 06:59 06:59 06:59 Intake Total 1090 1720 Output Total 3200 4100 900 Balance -5490 -2560 -900 Result Diagrams: 02/12/18 05:11 02/13/18 05:07 Additional Labs: Accuchecks 02/13/18 02/13/18 02/12/18 10:53 05:31 20:30 POC Glucose 155 H 152 H 195 H 02/12/18 16:26 POC Glucose 174 H Laboratory Tests 02/09/18 02/10/18 02/13/18 06:08 03:30 05:07 B-Natriuretic Peptide 3070.9 H 2137.1 H 1620.7 H Phys Exam - Physical Examination Constitutional: NAD HEENT: PERRLA, moist MMs, sclera anicteric, oral pharynx no lesions Neck: no nodes, no JVD, supple, full ROM Respiratory: no wheezing, no rales, no rhonchi, clear to auscultation bilateral Cardiovascular: RRR, no significant murmur, no rub Gastrointestinal: soft, non-tender, no distention, positive bowel sounds Musculoskeletal: no edema, pulses present Neurological: non-focal, normal sensation, moves all 4 limbs Psychiatric: normal affect, A&O x 3 Skin: no rash Dx/Plan (1) Acute combined systolic and diastolic CHF, NYHA class 3 Code(s): I50.41 - ACUTE COMBINED SYSTOLIC AND DIASTOLIC (CONGESTIVE) HRT FAIL Status: Acute Comment: ECHO with low EF of 20-25% (2) HARINDER (acute kidney injury) Code(s): N17.9 - ACUTE KIDNEY FAILURE, UNSPECIFIED Status: Acute (3) Chronic diarrhea Code(s): K52.9 - NONINFECTIVE GASTROENTERITIS AND COLITIS, UNSPECIFIED Status : Chronic Comment: Stool studies done as an Outpatient recently. reviwed with Dr Sutton.All negative for any infection (4) Chronic anemia Code(s): D64.9 - ANEMIA, UNSPECIFIED Status: Chronic Comment: Low iron levels (5) CAD (coronary artery disease) Code(s): I25.10 - ATHSCL HEART DISEASE OF [place] CORONARY ARTERY W/O ANG PCTRS Status: Chronic (6) DM2 (diabetes mellitus, type 2) Status: Chronic (7) HTN (hypertension) Code(s): I10 - ESSENTIAL (PRIMARY) HYPERTENSION Status: Chronic (8) Cardiomyopathy Code(s): I42.9 - CARDIOMYOPATHY, UNSPECIFIED Status: Chronic Comment: Omid Non ischemic. Moderate CAD on cath - Plan PT/OT, DVT proph w/SCDs cont cardio prudent meds.ASA,.BB,entresto. -: Lifevest to be fitted today w OP f/u w EP & cardiology -: cont PO lasix. -: omid MEIER home in am -: add statin.conr rest of the meds as below * . Review of Systems - Review of Systems Constitutional: weakness, malaise. negative: fever, chills, sweats, other ENT: negative: Ear Pain, Ear Discharge, Nose Pain, Nose Discharge, Nose Congestion, Mouth Pain, Mouth Swelling, Throat Pain, Throat Swelling, Other Respiratory: negative: Cough, Dry, Shortness of Breath, Hemoptysis, SOB with Excertion, Pleuritic Pain, Sputum, Wheezing Cardiovascular: negative: chest pain, palpitations, orthopnea, paroxysmal nocturnal dyspnea, edema, light headedness, other Gastrointestinal: negative: Nausea, Vomiting, Abdominal Pain, Diarrhea, Constipation, Melena, Hematochezia, Other Genitourinary: negative: Dysuria, Frequency, Incontinence, Hematuria, Retention , Other Musculoskeletal: negative: Neck Pain, Shoulder Pain, Arm Pain, Back Pain, Hand Pain, Leg Pain, Foot Pain, Other Skin: negative: Rash, Lesions, Emmanuel, Bruising, Other Neurological: negative: Weakness, Numbness, Incoordination, Change in Speech, Confusion, Seizures, Other - Medications/Allergies Allergies/Adverse Reactions: Allergies Allergy/AdvReac Type Severity Reaction Status Date / Time meperidine [From Demerol] Allergy Intermediate Anaphylaxis Verified 02/09/18 09: 27 propoxyphene [From Darvon] Allergy Anaphylaxis Verified 02/09/18 09:27 Medications: Current Medications Acetaminophen (Tylenol) 650 mg PO Q4H PRN PRN Reason: Headache/Fever or Mild Pain Last Admin: 02/12/18 14:39 Dose: 650 mg Al Hydroxide/Mg Hydroxide (Maalox) 15 ml PO Q4H PRN PRN Reason: Heartburn or Indigestion Alogliptin Benzoate (Alogliptin) 12.5 mg PO DAILY [facility] Last Admin: 02/10/18 16:37 Dose: 12.5 mg Alprazolam (Xanax) 0.5 mg PO HS [facility] Last Admin: 02/12/18 19:57 Dose: 0.5 mg Amitriptyline HCl (Elavil) 50 mg PO [facility] Last Admin: 02/12/18 19:57 Dose: 50 mg Aspirin (Ecotrin) 81 mg PO DAILY [facility] Last Admin: 02/13/18 05:13 Dose: 81 mg Benzonatate (Tessalon) 100 mg PO Q4H PRN PRN Reason: Cough Bisacodyl (Dulcolax) 10 mg PO DAILYPRN PRN PRN Reason: Constipation [facility] Cholecalciferol (Vitamin D3) 1,000 units PO DAILY [facility] Last Admin: 02/13/18 05:11 Dose: 1,000 units Clonidine (Catapres) 0.1 mg PO Q4H PRN PRN Reason: Systolic BP > 160 Coenzyme Q10 (Coenzyme Q10) 100 mg PO DAILY [facility] Last Admin: 02/13/18 05:11 Dose: 100 mg Dextrose/Water (Dextrose 50%) 25 gm SLOW IVP PRN PRN PRN Reason: Hypoglycemia Ferrous Sulfate (Feosol) 325 mg PO DAILY [facility] Last Admin: 02/13/18 05:12 Dose: 325 mg Furosemide (Lasix) 40 mg PO DAILY-[facility] Last Admin: 02/13/18 05:11 Dose: 40 mg Glucagon (Glucagon) 1 mg IM PRN PRN PRN Reason: Hypoglycemia Hydralazine HCl (Apresoline) 10 mg SLOW IVP Q4H PRN PRN Reason: Systolic BP > 170 Dextrose/Water (D5w) 1,000 mls @ 0 mls/hr IV .Q0M PRN PRN Reason: Hypoglycemia Sodium Chloride (Normal Saline 0.9%) 1,000 mls @ 100 mls/hr IV .Q10H DELTA Last Admin: 02/13/18 05:11 Dose: 1,000 mls Sodium Chloride (Normal Saline 0.9%) 200 mls @ 0 mls/hr IV ONE PRN PRN Reason: Bolus PRN SBP < 90 mm Hg Stop: 02/16/18 09:46 Insulin Human Lispro (Humalog) 0 units SC .MODERATE SLIDING SC PRN PRN Reason: Moderate Correctional Scale Last Admin: 02/11/18 13:44 Dose: 4 unit Insulin Human Lispro (Humalog) 0 units SC .BEDTIME SLIDING SC PRN PRN Reason: Bedtime Correctional Scale Loratadine (Claritin) 10 mg PO DAILYPRN PRN PRN Reason: Sinus Symptoms Last Admin: 02/12/18 14:43 Dose: 10 mg Lorazepam (Ativan) 1 mg PO Q4H PRN PRN Reason: Anxiety/Agitation Miscellaneous Information (Communication Order-Pharmacy) 0 each FS ONE DELTA Stop: 02/13/18 21:00 Miscellaneous Information (Communication Order-Pharmacy) 0 each FS ASDIR [facility] Montelukast Sodium (Singulair) 10 mg PO DAILY [facility] Last Admin: 02/13/18 05:12 Dose: 10 mg Multivitamins (Theragran) 1 tab PO DAILY [facility] Last Admin: 02/13/18 05:12 Dose: 1 tab Nitroglycerin (Nitrostat) 0.4 mg SL Q5MIN PRN PRN Reason: Chest Pain Nitroglycerin (Nitrostat) 0.4 mg SL Q5MIN PRN PRN Reason: Chest Pain Ondansetron HCl (Zofran) 4 mg IVP Q6H PRN PRN Reason: Nausea/Vomiting Last Admin: 02/13/18 14:30 Dose: 4 mg Pantoprazole Sodium (Protonix) 40 mg PO BID [facility] Last Admin: 02/13/18 05:12 Dose: 40 mg Sacubitril/Valsartan (Entresto 49 Mg-51 Mg Tablet) 1 tab PO BID [facility] Senna (Senokot) 2 tab PO HSPRN PRN PRN Reason: Constipation Sertraline HCl (Zoloft) 50 mg PO DAILY [facility] Last Admin: 02/13/18 05:11 Dose: 50 mg Sodium Chloride (Flush - Normal Saline) 10 ml IVF Q12HR [facility] Last Admin: 02/13/18 09:27 Dose: Not Given Sodium Chloride (Flush - Normal Saline) 10 ml IVF PRN PRN PRN Reason: Saline Flush Last Admin: 02/09/18 13:40 Dose: 10 ml Tramadol HCl (Ultram) 50 mg PO Q4H PRN PRN Reason: Moderate Pain (4-6)
[2018-02-13] MEDS: Carvedilol 6.25 MG TAB PO SCH (16:06)
[2018-02-13] MEDS: HumaLOG 300 UNITS/3 ML VIAL SC PRN (17:22)
[2018-02-13] MEDS: ALPRAZolam 0.5 MG TAB PO SCH (19:53)
[2018-02-13] MEDS: Amitriptyline HCl 25 MG TAB PO SCH (19:53)
[2018-02-13] MEDS: Sacubitril 49 MG/Valsartan 51 MG TABLET PO SCH (19:54)
[2018-02-14 06:23] LABS: Anion Gap 12 mmol/L (10-20); BUN (Urea Nitrogen) 8 mg/dL (9.8-20.1); Calc. Creatinine Clearance 83 mL/min (70-130); Carbon Dioxide 30 mmol/L (23-31); Chloride 96 mmol/L (98-107); Estimated GFR-MDRD 52; Glucose 166 mg/dL (80-115); Potassium 3.2 mmol/L (3.5-5.1); Sodium 135 mmol/L (136-145)
[2018-02-14] MEDS: Carvedilol 6.25 MG TAB PO SCH (07:37)
[2018-02-14] MEDS: Sodium Chloride 0.9% 1,000 ML IV SCH (07:37)
[2018-02-14] MEDS: Furosemide 40 MG TAB PO SCH (07:37)
[2018-02-14] MEDS: Alogliptin 6.25 MG TAB PO SCH (07:38)
[2018-02-14] MEDS: Ferrous Sulfate 325 MG TAB PO SCH (07:38)
[2018-02-14] MEDS: Aspirin 81 mg Enteric Coated Tablet PO SCH (07:38)
[2018-02-14] MEDS: Sacubitril 49 MG/Valsartan 51 MG TABLET PO SCH (07:39)
[2018-02-14] MEDS: Multivit, Therapeutic 1 TAB PO SCH (07:39)
[2018-02-14] MEDS: Ubidecarenone 50 MG CAP PO SCH (07:39)
[2018-02-14] MEDS: Montelukast Sodium 10 mg Tablet PO SCH (07:39)
[2018-02-14] MEDS ORDERED: Furosemide 40 MG TAB PO SCH (08:52)
[2018-02-14] MEDS ORDERED: Furosemide 20 MG TAB PO SCH (09:15)
[2018-02-14 11:06] VITALS: TEMP 98.2
[2018-02-14 12:26] VITALS: BP 123/56
--- NOTE | 2018-02-14 22:53 | DIS ---
DATE OF ADMISSION: 02/09/2018 DATE OF DISCHARGE: 02/14/2018 CONDITION AT THE TIME OF DISCHARGE: Stable and improved. DISCHARGE DISPOSITION: Home with outpatient cardiac rehabilitation. PRIMARY CARE PHYSICIAN: Taryn Kemp, nurse practitioner. PRIMARY [employer] DESIGNER: Dr. Casey David. DISCHARGE DIAGNOSES: 1. Acute congestive heart failure, combined systolic and diastolic NYHA class 3, new diagnosis. 2. Acute kidney insufficiency, resolved. 3. Chronic diarrhea. Patient follows up with Dr. Sutton as an outpatient and case was discussed with him briefly. Her recent stool studies done as an outpatient were reviewed with him and were negative . 4. Chronic anemia, status post IV iron infusion. 5. Coronary artery disease. 6. Diabetes mellitus, type 2. 7. Hypertension. 8. Nonischemic cardiomyopathy. DISCHARGE MEDICATIONS: New medication, carvedilol 6.25 mg p.o. b.i.d., Entresto 49/51 one tablet p.o . b.i.d., Lasix 20 mg daily, Livalo 1 tablet daily. Resume home medications as follows: Nexium 25 m g p.o. b.i.d., multivitamin daily, albuterol inhaler daily, ferrous sulfate 325 mg daily, vitamin D d aily, aspirin 81 mg daily, saxagliptin 5 mg daily, Singulair 10 mg daily, sertraline 50 mg daily, alp razolam 0.5 mg p.o. at bedtime, amitriptyline 50 mg daily, CoQ10 daily, metformin 1000 mg p.o. b.i.d. INHOUSE CONSULTATIONS: 1. Cardiology, Dr. David and Dr. Solis. 2. Electrophysiology, Dr. Wong. PROCEDURES DONE IN THE HOSPITAL: 1. Transthoracic echocardiogram, which shows EF of 20%-25% with mildly dilated left atrium and right atrium and moderately dilated right ventricle. Moderate mitral regurgitation and tricuspid regurgit ation. 2. Cardiac catheterization, which showed moderate coronary artery disease. LAD had 90% stenosis at 8 mm length and RCA has 30% proximal lesion and 50% right PDA. There is diffuse irregularity in left circumflex and RCA. HISTORY OF PRESENT ILLNESS: Ms. Peña is very pleasant 67-year-old female with past medical histor y of hypertension, dyslipidemia, diabetes mellitus, and [id number] coronary artery disease who presented to the emergency room with complaints of lower extremity swelling, chest pressure, and shor tness of breath. In the emergency room, a chest x-ray and at the findings are consistent with conges tive heart failure. She was admitted with a presumptive diagnosis of same for further workup. Aani krueger see admission history and physical for further detail. She was started on diuretics and Cardiology was consulted. An echo was ordered. HOSPITAL COURSE: The patient's echocardiogram was consistent with severe cardiomyopathy with EF of 2 0%-25%. Cardiology saw her. She underwent cardiac catheterization with results as mentioned above. She was optimized by medical management. LifeVest were provided for her and Electrophysiology was c onsulted by Dr. David. Dr. Wong also saw the patient and Dr. David followed along. Eventually , the plan was to discharge her home with LifeVest with outpatient echocardiogram in 3 weeks after me dical optimization. She was adequately diuresed and the repeat catheterization showed about the same amount of coronary a rtery disease as prior. No interventions were provided. As of this morning, the patient is back to baseline and has been cleared for discharge. Cardiac catheterization was done yesterday. She was se en and examined prior to discharge. Discharge plan was discussed with the patient, she verbalized un derstanding. All new prescriptions were provided. PHYSICAL EXAMINATION: VITAL SIGNS: This morning temperature 98.2, pulse of 85, respirations 17, saturating 94% on room air , blood pressure 121/60. GENERAL: No acute distress. CHEST: Clear to auscultation bilaterally. Rate and rhythm is regular without any murmurs, rubs, or gallops. ABDOMEN: Soft, nontender. EXTREMITIES: Free of any cyanosis, clubbing, or edema. LABORATORY DATA: Hemoglobin 10.5, which was 10 upon presentation. Serum chemistries unremarkable. Creatinine 1.06 on discharge, which was 1.23 upon presentation. TSH 6.1030. Free T3 and free T4 are within normal limits. FOLLOWUP: 1. Primary care physician in 1 week. 2. Cardiology in 2-3 weeks. Total time spent 32 minutes.
[2018-02-15] MEDS ORDERED: Furosemide 20 MG TAB PO SCH (07:30)
== END 2018-02-14 13:20 | disposition home or self-care (01) | DRG 287 ==
LOC: ERS 06:00 → 2NO 08:55
PROVIDERS: ADMIT Internal Medicine; ATTEND Internal Medicine
PROC: 4A023N7 Measurement of Cardiac Sampling and Pressure, Left Heart, Percutaneous Approach (ICD-10-PCS; principal; 2018-02-13)
PROC: B2111ZZ Fluoroscopy of Multiple Coronary Arteries using Low Osmolar Contrast (ICD-10-PCS; 2018-02-13)
PROC: B2151ZZ Fluoroscopy of Left Heart using Low Osmolar Contrast (ICD-10-PCS; 2018-02-13)
DX: I11.0 Hypertensive heart disease with heart failure (principal); N17.9 Acute kidney failure, unspecified; I50.41 Acute combined systolic (congestive) and diastolic (congestive) heart failure; E11.9 Type 2 diabetes mellitus without complications; E78.5 Hyperlipidemia, unspecified; I25.10 Atherosclerotic heart disease of native coronary artery without angina pectoris; K52.9 Noninfective gastroenteritis and colitis, unspecified; Z98.84 Bariatric surgery status; Z88.8 Allergy status to other drugs, medicaments and biological substances; Z79.899 Other long term (current) drug therapy; Z79.84 Long term (current) use of oral hypoglycemic drugs; Z79.82 Long term (current) use of aspirin; D64.9 Anemia, unspecified; I42.8 Other cardiomyopathies
CPT/HCPCS: 36415; 36416; 71045; 71046; 80048; 80053; 81003; 82553; 82607; 82746; 83540; 83550; 83880; 84439; 84443; 84481; 84484; 85025; 93005; 93010; 93306; 93458; 93798; 96374; 99152; C1769; G8996-GN-CH; G8997-GN-CH; G8998-GN-CH; J1160; J1644; J1650; J1940; J2001; J2250; J2405; J2916; J7050

== ENCOUNTER 2018-08-01 19:30 | Outpatient (CLI) | payer MEDICARE, BC | END 2018-08-01 19:31 | disposition home or self-care (01) | LOC: SLEEPLAB 19:30 | PROVIDERS: ATTEND Internal Medicine Cardiovascular Disease | DX: R53.83 Other fatigue (principal); E66.9 Obesity, unspecified; I10 Essential (primary) hypertension; I25.10 Atherosclerotic heart disease of native coronary artery without angina pectoris; R09.02 Hypoxemia; G47.11 Idiopathic hypersomnia with long sleep time | CPT/HCPCS: 95810 ==

== ENCOUNTER 2020-05-01 11:45 | Emergency (ER) | payer MEDICARE, BC ==
[~2020-05-01 11:45] MED LIST: Iopamidol-370 76% 500 ML 1 ML ONE
[2020-05-01] MEDS ORDERED: Dexamethasone 10 MG/ML VIAL ONE (12:06)
[2020-05-01 13:13] LABS: #Lymphocytes 0.8 thou/uL (1.20-3.40); #Monocytes 0.2 thou/uL (0.11-0.59); #Neutrophils 3.1 thou/uL (1.40-6.50); %Basophils 0.6 % (0.0-1.0); %Eosinophils 0.1 % (0.0-10.0); %Lymphocytes 19.3 % (21.0-51.0); %Monocytes 4.3 % (0.0-10.0); %Neutrophils 75.7 % (42.0-75.0); Hemoglobin 11.4 g/dL (12.0-16.0); Mean Corpuscular HGB CONC 33.2 g/dL (32.0-36.0); Mean Corpuscular Volume 93.3 fL (78.0-98.0); Mean Platelet Volume 8.2 fL (7.4-10.4); Platelet Count 161 thou/uL (130-400); Red Blood Cell (RBC) Count 3.69 mill/uL (4.20-5.40); White Blood Cell (WBC) Count 4.1 thou/uL (4.8-10.8)
--- NOTE | 2020-05-01 13:32 | RAD ---
FRONTAL RADIOGRAPH CHEST PORTABLE UPRIGHT: DATE: 05/01/2020. COMPARISON: 02/09/2018. HISTORY: Dyspnea. FINDINGS: There is a new single-lead AICD inserted via a left subclavian approach. There is prominence of the cardiac silhouette and there is atherosclerotic calcification of the aortic arch. There is no pneumothorax or lobar consolidation. Mild perihilar and bibasilar interstitial prominenc e noted with hazy areas of upper and lower lobe ground-glass opacity. IMPRESSION: Subtle interstitial and ground-glass opacity. Findings could be related to atypical infectious pneum onitis, including COVID pneumonia in the proper clinical setting. No focal consolidation or alveolar edema. POS: LETITIA
[2020-05-01 13:33] LABS: ALT (SGPT) 10 U/L (8-55); AST (SGOT) 23 U/L (5-34); Albumin 3.3 g/dL (3.4-4.8); Alkaline Phosphatase 96 U/L (40-110); Anion Gap 15 mmol/L (10-20); BUN (Urea Nitrogen) 15 mg/dL (9.8-20.1); Bilirubin, Total 0.4 mg/dL (0.2-1.2); CK (CPK) 32 U/L (29-168); Calc. Creatinine Clearance 0 mL/min (70-130); Calcium 7.9 mg/dL (7.8-10.44); Carbon Dioxide 27 mmol/L (23-31); Chloride 98 mmol/L (98-107); Globulin 2.9 g/dL (2.4-3.5); Glucose 138 mg/dL (83-110); Lipase 20 U/L (8-78); Potassium 4.6 mmol/L (3.5-5.1); Protein, Total 6.2 g/dL (6.0-8.3); Sodium 135 mmol/L (136-145)
--- NOTE | 2020-05-01 15:45 | CT ---
CT ANGIO OF CHEST PERFORMED WITH INTRAVENOUS CONTRAST ENHANCEMENT WITH 3D RECONSTRUCTION: 05/01/20 HISTORY: Shortness of breath. The patient is COVID positive. Bilateral ground glass infiltrates have characteristic appearance of COVID pneumonia. No significant mediastinal or hilar adenopathy. The thoracic aorta is normal in caliber. Hiatal herni a and gastric bypass changes are noted. Gallbladder has been removed. There is good pulmonary artery opacification, there is no CT evidence for pulmonary embolus. IMPRESSION: 1. Diffuse bilateral ground glass lung infiltrate compatible with COVID pneumonia. 2. No CT evidence for pulmonary embolus. POS: AH
[2020-05-01] MEDS ORDERED: BAMLANIVIMAB 700 MG in Sodium Chloride 0.9% 250 ML 250 ML IVPB SCH (17:30)
[2020-05-01] MEDS ORDERED: Acetaminophen 500 MG TAB ONE (18:02)
[2020-05-01] MEDS ORDERED: diphenhydrAMINE 50 MG/ML VIAL ONE (18:02)
[2020-05-01 21:19] LABS: SARS-CoV-2 MS2 Positive; SARS-CoV-2 N Gene Positive; SARS-CoV-2 S Gene Positive; SARS-CoV-2 by NAA DETECTED (NotDetected); SARS-CoV-2 orf1ab Positive
--- NOTE | 2020-05-03 15:23 | EKG ---
Test Reason : Blood Pressure : / mmHG Vent. Rate : 070 BPM Atrial Rate : 070 BPM P-R Int : 234 ms QRS Dur : 088 ms QT Int : 404 ms P-R-T Axes : 000 007 062 degrees QTc Int : 436 ms Sinus rhythm with 1st degree A-V block Otherwise normal ECG Confirmed by DENISE WOODARD, RADHAMES ([id number]), videotape editor ALEXANDER BENTLEY ([id number]) on 05/03/2020 3:23:00 PM Referred By: Confirmed By:RADHAMES WALKER MD
== END 2020-05-01 20:19 | disposition home or self-care (01) ==
LOC: ERS 11:45
DX: U07.1 COVID-19 (principal); I25.2 Old myocardial infarction; E11.9 Type 2 diabetes mellitus without complications; J44.9 Chronic obstructive pulmonary disease, unspecified; E78.5 Hyperlipidemia, unspecified; E78.00 Pure hypercholesterolemia, unspecified; I10 Essential (primary) hypertension; Z79.899 Other long term (current) drug therapy; Z79.82 Long term (current) use of aspirin
CPT/HCPCS: 71045; 71275; 80053; 82550; 83690; 83880; 84484; 85025; 85379; 93005; 96374; 96375; 99285; M0239; U0003; 36415; 87635; J1100; J1200; Q9967

== ENCOUNTER 2020-07-28 08:22 | Inpatient (IN) | payer MEDICARE, BC ==
[2020-07-28 09:01] LABS: Hemoglobin 13.3 g/dL (12.0-16.0); Mean Corpuscular HGB CONC 33.8 g/dL (32.0-36.0); Mean Corpuscular Hemoglobin 31.7 pg (27.0-31.0); Mean Corpuscular Volume 93.7 fL (78.0-98.0); Mean Platelet Volume 8.9 fL (7.4-10.4); Platelet Count 183 thou/uL (130-400); RBC Distribution Width 13.6 % (11.5-14.5); Red Blood Cell (RBC) Count 4.18 mill/uL (4.20-5.40); White Blood Cell (WBC) Count 14.7 thou/uL (4.8-10.8)
[2020-07-28 09:19] LABS: ALT (SGPT) 16 U/L (8-55); AST (SGOT) 25 U/L (5-34); Albumin 3.7 g/dL (3.4-4.8); Alkaline Phosphatase 115 U/L (40-110); Anion Gap 13 mmol/L (10-20); BUN (Urea Nitrogen) 11 mg/dL (9.8-20.1); Bilirubin, Total 0.6 mg/dL (0.2-1.2); Calc. Creatinine Clearance 0 mL/min (70-130); Calcium 8.7 mg/dL (7.8-10.44); Carbon Dioxide 30 mmol/L (23-31); Chloride 93 mmol/L (98-107); Globulin 3.5 g/dL (2.4-3.5); Glucose 213 mg/dL (83-110); Lipase 10 U/L (8-78); Potassium 5.1 mmol/L (3.5-5.1); Protein, Total 7.2 g/dL (5.8-8.1); Sodium 131 mmol/L (136-145)
[2020-07-28] MEDS ORDERED: Azithromycin 500 MG VIAL ONE (09:34)
[2020-07-28] MEDS ORDERED: cefTRIAXone\\ROCEPHIN 1 GM VIAL ONE (09:34)
[2020-07-28 09:37] LABS: Band 28 % (5-11); Lymphocytes 3 % (21-51); MDiff Complete? YES; Metamyelocyte 1 % (0-0); Monocytes 2 % (0-10); Neutrophil 66 % (42-75); Platelet Morphology Comment Appears Adequate; RBC Morphology Normal
[2020-07-28 10:32] LABS: Bilirubin Negative (Negative); Blood, Urine Negative (Negative); Clarity Clear (Clear); Glucose, Urine (Dipstick) Normal (Negative); Ketone, Urine Negative (Negative); Leukocyte Negative Leu/uL (Negative); Nitrite Negative (Negative); Protein, Urine (Dipstick) Negative (Neg-Trace); Urobilinogen 3 mg/dL (Less than 2); pH, Urine 6.5 (5.0-9.0)
[2020-07-28] MEDS ORDERED: Acetaminophen 650 MG Suppository PR PRN (11:43)
[2020-07-28] MEDS ORDERED: Acetaminophen 325 MG TAB PO PRN (11:43)
[2020-07-28] MEDS ORDERED: Guaifenesin DM 100-10/5 ML UDCUP PO PRN (11:43)
[2020-07-28] MEDS ORDERED: Ondansetron ODT 4 MG TAB PO PRN (11:43)
[2020-07-28] MEDS ORDERED: Ondansetron PF 4 MG/2 ML Vial IVP PRN (11:43)
[2020-07-28] MEDS ORDERED: Dextrose 50% Abboject 50 ML SYRINGE SLOW IVP PRN (11:49)
[2020-07-28] MEDS ORDERED: Dextrose 5% in Water 1,000 ML IV PRN (11:49)
[2020-07-28] MEDS ORDERED: HumaLOG 300 UNITS/3 ML VIAL SC PRN (11:49)
[2020-07-28 12:25] VITALS: BMI 46.9
[2020-07-28] MEDS: Apixaban 2.5 MG TAB PO SCH (20:54)
[2020-07-28] MEDS: ALPRAZolam 0.5 MG TAB PO SCH (20:54)
[2020-07-28] MEDS: Melatonin 3 MG TAB PO SCH (20:54)
[2020-07-29 06:57] LABS: #Eosinphils 0.1 thou/uL (0.0-0.7); #Lymphocytes 1.9 thou/uL (1.20-3.40); #Monocytes 0.5 thou/uL (0.11-0.59); #Neutrophils 7.6 thou/uL (1.40-6.50); %Basophils 0.5 % (0.0-1.0); %Eosinophils 0.8 % (0.0-10.0); %Monocytes 5.2 % (0.0-10.0); %Neutrophils 74.6 % (42.0-75.0); Hemoglobin 10.5 g/dL (12.0-16.0); Mean Corpuscular HGB CONC 32.9 g/dL (32.0-36.0); Mean Corpuscular Hemoglobin 31.1 pg (27.0-31.0); Mean Corpuscular Volume 94.6 fL (78.0-98.0); Mean Platelet Volume 8.6 fL (7.4-10.4); Platelet Count 146 thou/uL (130-400); RBC Distribution Width 13.7 % (11.5-14.5); Red Blood Cell (RBC) Count 3.38 mill/uL (4.20-5.40); White Blood Cell (WBC) Count 10.2 thou/uL (4.8-10.8)
[2020-07-29 07:04] LABS: Anion Gap 9 mmol/L (10-20); BUN (Urea Nitrogen) 13 mg/dL (9.8-20.1); Calc. Creatinine Clearance 91 mL/min (70-130); Calcium 7.9 mg/dL (7.8-10.44); Carbon Dioxide 27 mmol/L (23-31); Chloride 97 mmol/L (98-107); Glucose 193 mg/dL (83-110); Sodium 129 mmol/L (136-145)
[2020-07-29] MEDS: ALPRAZolam 0.5 MG TAB PO SCH ×2 (07:58→20:25)
[2020-07-29] MEDS: Polyethylene Glycol 3350 17 GM Packet PO SCH (07:58)
[2020-07-29] MEDS: Apixaban 2.5 MG TAB PO SCH (07:58)
[2020-07-29 08:57] LABS: Potassium, Urine 31.8 mmol/L
[2020-07-29 10:03] LABS: Sodium 130 mmol/L (136-145)
[2020-07-29] MEDS: Cholecalciferol 1,000 UNITS (25 MCG) TAB PO SCH (10:48)
[2020-07-29] MEDS: Apixaban 5 MG TAB PO SCH ×2 (10:49→20:24)
[2020-07-29] MEDS: Aspirin 81 mg Enteric Coated Tablet PO SCH (10:49)
[2020-07-29] MEDS: Sacubitril 49 MG/Valsartan 51 MG TABLET PO SCH ×2 (10:49→20:25)
[2020-07-29] MEDS: Furosemide 20 MG TAB PO SCH (10:52)
[2020-07-29] MEDS: Azithromycin 500 MG in Sodium Chloride 0.9% 250 ML 250 ML IVPB SCH (10:52)
[2020-07-29] MEDS ORDERED: FLU VACC QS2020-21(65YR UP)/PF 240 MCG/0.7 ML SYRINGE IM ONE (12:45)
[2020-07-29] MEDS: cefTRIAXone\\ROCEPHIN 1 GM in Sodium Chloride 0.9% 100 ML IVPB SCH (13:09)
[2020-07-29 16:40] LABS: Sodium 131 mmol/L (136-145)
[2020-07-29] MEDS: Carvedilol 6.25 MG TAB PO SCH (17:13)
[2020-07-29] MEDS: Sodium Chloride 0.9% 1,000 ML IV SCH (17:14)
[2020-07-29] MEDS: DULoxetine 60 MG CAP PO SCH (20:24)
[2020-07-29] MEDS: Montelukast Sodium 10 mg Tablet PO SCH (20:25)
[2020-07-29] MEDS: Melatonin 3 MG TAB PO SCH (20:25)
[2020-07-30] MEDS: Sodium Chloride 0.9% 1,000 ML IV SCH (05:06)
[2020-07-30] MEDS: Levothyroxine Sodium 100 MCG TAB PO SCH (05:06)
[2020-07-30 05:49] LABS: #Eosinphils 0.1 thou/uL (0.0-0.7); #Lymphocytes 1.8 thou/uL (1.20-3.40); #Monocytes 0.5 thou/uL (0.11-0.59); #Neutrophils 6.7 thou/uL (1.40-6.50); %Basophils 0.5 % (0.0-1.0); %Eosinophils 1.3 % (0.0-10.0); %Lymphocytes 19.5 % (21.0-51.0); %Monocytes 5.2 % (0.0-10.0); %Neutrophils 73.5 % (42.0-75.0); Hemoglobin 11.3 g/dL (12.0-16.0); Mean Corpuscular HGB CONC 33.2 g/dL (32.0-36.0); Mean Corpuscular Volume 93.4 fL (78.0-98.0); Mean Platelet Volume 9.3 fL (7.4-10.4); Platelet Count 181 thou/uL (130-400); RBC Distribution Width 13.7 % (11.5-14.5); Red Blood Cell (RBC) Count 3.65 mill/uL (4.20-5.40); White Blood Cell (WBC) Count 9.1 thou/uL (4.8-10.8)
[2020-07-30] MEDS: HumaLOG 300 UNITS/3 ML VIAL SC PRN ×2 (06:06→12:59)
[2020-07-30 06:10] LABS: Anion Gap 13 mmol/L (10-20); BUN (Urea Nitrogen) 10 mg/dL (9.8-20.1); Calc. Creatinine Clearance 102 mL/min (70-130); Calcium 8.6 mg/dL (7.8-10.44); Carbon Dioxide 25 mmol/L (23-31); Chloride 100 mmol/L (98-107); Glucose 191 mg/dL (83-110); Potassium 4.5 mmol/L (3.5-5.1); Sodium 133 mmol/L (136-145)
[2020-07-30] MEDS: ALPRAZolam 0.5 MG TAB PO SCH ×2 (08:34→19:58)
[2020-07-30] MEDS: Sacubitril 49 MG/Valsartan 51 MG TABLET PO SCH ×2 (08:34→19:59)
[2020-07-30] MEDS: Cholecalciferol 1,000 UNITS (25 MCG) TAB PO SCH (08:34)
[2020-07-30] MEDS: Furosemide 20 MG TAB PO SCH (08:35)
[2020-07-30] MEDS: Aspirin 81 mg Enteric Coated Tablet PO SCH (08:35)
[2020-07-30] MEDS: Apixaban 5 MG TAB PO SCH ×2 (08:35→20:03)
[2020-07-30] MEDS: Carvedilol 6.25 MG TAB PO SCH ×2 (08:35→16:38)
[2020-07-30] MEDS: Polyethylene Glycol 3350 17 GM Packet PO SCH (08:36)
[2020-07-30] MEDS: cefTRIAXone\\ROCEPHIN 1 GM in Sodium Chloride 0.9% 100 ML IVPB SCH (12:54)
[2020-07-30] MEDS: Azithromycin 500 MG in Sodium Chloride 0.9% 250 ML 250 ML IVPB SCH (13:46)
[2020-07-30] MEDS: guaiFENesin/DM ER PO SCH (19:58)
[2020-07-30] MEDS: DULoxetine 60 MG CAP PO SCH (19:58)
[2020-07-30] MEDS: Montelukast Sodium 10 mg Tablet PO SCH (19:59)
[2020-07-30] MEDS: Melatonin 3 MG TAB PO SCH (19:59)
[2020-07-31 05:36] LABS: #Eosinphils 0.1 thou/uL (0.0-0.7); #Lymphocytes 1.4 thou/uL (1.20-3.40); #Monocytes 0.5 thou/uL (0.11-0.59); %Basophils 0.5 % (0.0-1.0); %Eosinophils 2.3 % (0.0-10.0); %Lymphocytes 23.3 % (21.0-51.0); %Monocytes 7.5 % (0.0-10.0); %Neutrophils 66.4 % (42.0-75.0); Hemoglobin 10.3 g/dL (12.0-16.0); Mean Corpuscular HGB CONC 32.3 g/dL (32.0-36.0); Mean Corpuscular Hemoglobin 30.4 pg (27.0-31.0); Mean Platelet Volume 8.9 fL (7.4-10.4); Platelet Count 160 thou/uL (130-400); RBC Distribution Width 13.5 % (11.5-14.5); Red Blood Cell (RBC) Count 3.39 mill/uL (4.20-5.40); White Blood Cell (WBC) Count 5.9 thou/uL (4.8-10.8)
[2020-07-31] MEDS: Levothyroxine Sodium 100 MCG TAB PO SCH (05:41)
[2020-07-31] MEDS: HumaLOG 300 UNITS/3 ML VIAL SC PRN ×2 (05:42→12:28)
[2020-07-31] MEDS: Sodium Chloride 0.9% 1,000 ML IV SCH (05:44)
[2020-07-31 06:00] LABS: Anion Gap 11 mmol/L (10-20); BUN (Urea Nitrogen) 9 mg/dL (9.8-20.1); Calc. Creatinine Clearance 106 mL/min (70-130); Calcium 8.2 mg/dL (7.8-10.44); Carbon Dioxide 27 mmol/L (23-31); Chloride 101 mmol/L (98-107); Glucose 193 mg/dL (83-110); Potassium 4.1 mmol/L (3.5-5.1); Sodium 135 mmol/L (136-145)
[2020-07-31] MEDS: Polyethylene Glycol 3350 17 GM Packet PO SCH (08:30)
[2020-07-31] MEDS: Carvedilol 6.25 MG TAB PO SCH (08:30)
[2020-07-31] MEDS: Aspirin 81 mg Enteric Coated Tablet PO SCH (08:30)
[2020-07-31] MEDS: ALPRAZolam 0.5 MG TAB PO SCH (08:30)
[2020-07-31] MEDS: Furosemide 20 MG TAB PO SCH (08:31)
[2020-07-31] MEDS: Cholecalciferol 1,000 UNITS (25 MCG) TAB PO SCH (08:31)
[2020-07-31] MEDS: Apixaban 5 MG TAB PO SCH (08:31)
[2020-07-31] MEDS: guaiFENesin/DM ER PO SCH (08:34)
[2020-07-31] MEDS: Sacubitril 49 MG/Valsartan 51 MG TABLET PO SCH (08:35)
[2020-07-31] MEDS: cefTRIAXone\\ROCEPHIN 1 GM in Sodium Chloride 0.9% 100 ML IVPB SCH (12:29)
[2020-07-31] MEDS: Azithromycin 500 MG in Sodium Chloride 0.9% 250 ML 250 ML IVPB SCH (13:22)
[2020-07-31 15:11] VITALS: BP 157/90; TEMP 97.5
== END 2020-07-31 16:04 | disposition home health service (06) | DRG 194 ==
LOC: ERS 08:22 → T4-A 11:00
PROVIDERS: ADMIT Internal Medicine; ATTEND Hospitalist
DX: J18.9 Pneumonia, unspecified organism (principal); J44.0 Chronic obstructive pulmonary disease with (acute) lower respiratory infection; I50.22 Chronic systolic (congestive) heart failure; E87.1 Hypo-osmolality and hyponatremia; N17.9 Acute kidney failure, unspecified; Z68.42 Body mass index [BMI] 45.0-49.9, adult; K59.00 Constipation, unspecified; E78.5 Hyperlipidemia, unspecified; E78.00 Pure hypercholesterolemia, unspecified; E11.9 Type 2 diabetes mellitus without complications; I11.0 Hypertensive heart disease with heart failure; K21.9 Gastro-esophageal reflux disease without esophagitis; D50.9 Iron deficiency anemia, unspecified; E66.01 Morbid (severe) obesity due to excess calories; I25.10 Atherosclerotic heart disease of native coronary artery without angina pectoris; Z90.49 Acquired absence of other specified parts of digestive tract; Z90.710 Acquired absence of both cervix and uterus; Z88.8 Allergy status to other drugs, medicaments and biological substances; Z79.899 Other long term (current) drug therapy; Z79.82 Long term (current) use of aspirin; Z79.01 Long term (current) use of anticoagulants; Z79.890 Hormone replacement therapy; Z86.16 Personal history of COVID-19; I25.2 Old myocardial infarction; Z95.810 Presence of automatic (implantable) cardiac defibrillator
CPT/HCPCS: 36415; 36416; 51701; 70450; 71045; 80048; 80053; 81003; 82436; 83690; 83880; 83930; 83935; 84133; 84300; 84443; 84484; 85025; 93005; 94640; 94760; 96365; 96367; J0456; J0696; J1815; J3490; J7050; J7620

== ENCOUNTER 2020-10-23 21:37 | Inpatient (IN) | payer MEDICARE, BC ==
[2020-10-23 23:36] LABS: #Eosinphils 0.1 thou/uL (0.0-0.7); #Lymphocytes 1.1 thou/uL (1.20-3.40); #Monocytes 0.2 thou/uL (0.11-0.59); #Neutrophils 8.3 thou/uL (1.40-6.50); %Basophils 0.2 % (0.0-1.0); %Eosinophils 0.7 % (0.0-10.0); %Lymphocytes 11.7 % (21.0-51.0); %Monocytes 2.3 % (0.0-10.0); Hemoglobin 14.5 g/dL (12.0-16.0); Mean Corpuscular HGB CONC 28.2 g/dL (32.0-36.0); Mean Corpuscular Hemoglobin 27.7 pg (27.0-31.0); Mean Platelet Volume 9.1 fL (7.4-10.4); Platelet Count 153 thou/uL (130-400); RBC Distribution Width 13.8 % (11.5-14.5); Red Blood Cell (RBC) Count 5.26 mill/uL (4.20-5.40); White Blood Cell (WBC) Count 9.7 thou/uL (4.8-10.8)
[2020-10-23 23:37] LABS: ALT (SGPT) 13 U/L (8-55); AST (SGOT) 23 U/L (5-34); Albumin 3.7 g/dL (3.4-4.8); Alkaline Phosphatase 101 U/L (40-110); Anion Gap 15 mmol/L (10-20); BUN (Urea Nitrogen) 17 mg/dL (9.8-20.1); Bilirubin, Total 0.3 mg/dL (0.2-1.2); Calc. Creatinine Clearance 0 mL/min (70-130); Calcium 9.2 mg/dL (7.8-10.44); Carbon Dioxide 26 mmol/L (23-31); Chloride 96 mmol/L (98-107); Globulin 3.6 g/dL (2.4-3.5); Glucose 253 mg/dL (83-110); Lipase 24 U/L (8-78); Protein, Total 7.3 g/dL (5.8-8.1); Sodium 132 mmol/L (136-145)
[2020-10-24] MEDS ORDERED: Ondansetron PF 4 MG/2 ML Vial ONE ×2 (00:36→03:41)
[2020-10-24] MEDS ORDERED: Mag-Al 1200 mg/1200 mg/30 ML UDCUP ONE (01:45)
[2020-10-24] MEDS ORDERED: Lidocaine Viscous Sol 2% 15 ml UD Cup ONE ×2 (01:45→04:43)
[2020-10-24] MEDS ORDERED: Ondansetron ODT 4 MG TAB ONE (02:56)
[2020-10-24] MEDS ORDERED: Oxymetazoline HCl 0.05% (30 ML BOT) ONE (04:43)
[2020-10-24] MEDS ORDERED: Benzocaine 20% Spray 60 ML CAN ONE (04:43)
[2020-10-24] MEDS ORDERED: Morphine 4 MG/ML VIAL ONE (05:07)
[2020-10-24] MEDS ORDERED: Ondansetron PF 4 MG/2 ML Vial IVP PRN (07:08)
[2020-10-24] MEDS ORDERED: Ondansetron ODT 4 MG TAB PO PRN (07:08)
[2020-10-24] MEDS ORDERED: Sodium Chloride 0.9% 1,000 ML IV SCH (07:15)
[2020-10-24 07:33] VITALS: BMI 37.8
[2020-10-24] MEDS ORDERED: Dextrose 5% in Water 1,000 ML IV PRN (09:37)
[2020-10-24] MEDS ORDERED: HumaLOG 300 UNITS/3 ML VIAL SC PRN (09:37)
[2020-10-24] MEDS ORDERED: Dextrose 50% Abboject 50 ML SYRINGE SLOW IVP PRN (09:37)
[2020-10-24] MEDS ORDERED: Pantoprazole 40 MG VIAL IVP SCH (10:15)
[2020-10-24 11:01] LABS: #Lymphocytes 1.2 thou/uL (1.20-3.40); #Monocytes 0.5 thou/uL (0.11-0.59); #Neutrophils 9.7 thou/uL (1.40-6.50); %Basophils 0.1 % (0.0-1.0); %Eosinophils 0.3 % (0.0-10.0); %Lymphocytes 10.4 % (21.0-51.0); %Monocytes 4.6 % (0.0-10.0); %Neutrophils 84.6 % (42.0-75.0); Mean Corpuscular HGB CONC 32.8 g/dL (32.0-36.0); Mean Corpuscular Hemoglobin 31.5 pg (27.0-31.0); Mean Corpuscular Volume 96.1 fL (78.0-98.0); Mean Platelet Volume 8.2 fL (7.4-10.4); Platelet Count 189 thou/uL (130-400); RBC Distribution Width 13.6 % (11.5-14.5); Red Blood Cell (RBC) Count 4.12 mill/uL (4.20-5.40); White Blood Cell (WBC) Count 11.5 thou/uL (4.8-10.8)
[2020-10-24 11:05] LABS: Lactic Acid 2.6 mmol/L (0.5-2.2)
[2020-10-24 11:49] LABS: Anion Gap 21 mmol/L (10-20); BUN (Urea Nitrogen) 18 mg/dL (9.8-20.1); Calc. Creatinine Clearance 64 mL/min (70-130); Carbon Dioxide 17 mmol/L (23-31); Chloride 97 mmol/L (98-107); Potassium 4.8 mmol/L (3.5-5.1); Sodium 130 mmol/L (136-145)
[2020-10-24 11:50] LABS: ALT (SGPT) 18 U/L (8-55); AST (SGOT) 38 U/L (5-34); Albumin 3.2 g/dL (3.4-4.8); Alkaline Phosphatase 89 U/L (40-110); Bilirubin, Total 0.5 mg/dL (0.2-1.2); Calcium 8.9 mg/dL (7.8-10.44); Globulin 3.6 g/dL (2.4-3.5); Glucose 238 mg/dL (83-110); Protein, Total 6.8 g/dL (5.8-8.1)
[2020-10-24] MEDS ORDERED: Pantoprazole 80 MG in Sodium Chloride 0.9% 100 ML IVPB SCH (12:00)
[2020-10-24 16:58] LABS: Bilirubin Negative (Negative); Blood, Urine Negative (Negative); Clarity Turbid (Clear); Glucose, Urine (Dipstick) 300 mg/dL (Negative); Ketone, Urine Negative (Negative); Leukocyte 500 Leu/uL (Negative); Nitrite Negative (Negative); Protein, Urine (Dipstick) 10 mg/dL (Neg-Trace); Specific Gravity, Urine 1.018 (1.002-1.036); Urobilinogen Normal mg/dL (Less than 2); WBC/HPF 21-50 HPF (0-3)
[2020-10-24 17:00] LABS: Bacteria/HPF 1+ HPF (None Seen)
[2020-10-24 17:01] LABS: Urine Culture Reflex No No
[2020-10-24] MEDS: Sodium Chloride 0.9% 1,000 ML IV SCH ×2 (17:55→22:34)
[2020-10-24] MEDS ORDERED: DULoxetine 60 MG CAP PO SCH (21:00)
[2020-10-24] MEDS: Pantoprazole 40 MG VIAL IVP SCH ×2 (22:01→22:33)
[2020-10-24] MEDS ORDERED: Sodium Chloride 0.9% 500 ML IV SCH (22:45)
[2020-10-25 05:30] LABS: #Eosinphils 0.1 thou/uL (0.0-0.7); #Lymphocytes 1.6 thou/uL (1.20-3.40); #Monocytes 0.3 thou/uL (0.11-0.59); #Neutrophils 4.5 thou/uL (1.40-6.50); %Basophils 0.1 % (0.0-1.0); %Eosinophils 1.1 % (0.0-10.0); %Lymphocytes 24.9 % (21.0-51.0); %Monocytes 5.2 % (0.0-10.0); %Neutrophils 68.7 % (42.0-75.0); Hemoglobin 10.7 g/dL (12.0-16.0); Mean Corpuscular HGB CONC 34.1 g/dL (32.0-36.0); Mean Corpuscular Hemoglobin 32.7 pg (27.0-31.0); Mean Corpuscular Volume 95.9 fL (78.0-98.0); Mean Platelet Volume 8.3 fL (7.4-10.4); Platelet Count 168 thou/uL (130-400); Red Blood Cell (RBC) Count 3.27 mill/uL (4.20-5.40); White Blood Cell (WBC) Count 6.5 thou/uL (4.8-10.8)
[2020-10-25 05:53] LABS: Lactic Acid 0.8 mmol/L (0.5-2.2)
[2020-10-25 05:57] LABS: ALT (SGPT) 12 U/L (8-55); AST (SGOT) 18 U/L (5-34); Albumin 3.2 g/dL (3.4-4.8); Alkaline Phosphatase 76 U/L (40-110); Anion Gap 12 mmol/L (10-20); BUN (Urea Nitrogen) 15 mg/dL (9.8-20.1); Bilirubin, Total 0.5 mg/dL (0.2-1.2); Calc. Creatinine Clearance 65 mL/min (70-130); Calcium 8.1 mg/dL (7.8-10.44); Carbon Dioxide 29 mmol/L (23-31); Chloride 101 mmol/L (98-107); Globulin 2.7 g/dL (2.4-3.5); Glucose 203 mg/dL (83-110); Magnesium 1.7 mg/dL (1.6-2.6); Potassium 3.7 mmol/L (3.5-5.1); Protein, Total 5.9 g/dL (5.8-8.1); Sodium 138 mmol/L (136-145)
[2020-10-25] MEDS: Levothyroxine Sodium 100 MCG TAB PO SCH (06:00)
[2020-10-25] MEDS ORDERED: Non-Formulary Item 1 EACH (Levothyroxine Sodium [Levothyroxine] 100 MCG Capsule) PO SCH (09:00)
[2020-10-25] MEDS: Pantoprazole 40 MG VIAL IVP SCH (10:07)
[2020-10-25] MEDS ORDERED: MD-Gastroview 120 ML BOT ONE (11:31)
[2020-10-25] MEDS ORDERED: Ondansetron PF 4 MG/2 ML Vial IVP PRN (16:58)
[2020-10-25] MEDS: Sodium Chloride 0.9% 1,000 ML IV SCH (17:58)
[2020-10-25] MEDS ORDERED: Alogliptin 6.25 MG TAB PO SCH (21:00)
[2020-10-25] MEDS ORDERED: Montelukast Sodium 10 mg Tablet PO SCH (21:00)
[2020-10-25] MEDS: Multivit, Therapeutic 1 TAB PO SCH (21:11)
[2020-10-25] MEDS: Apixaban 5 MG TAB PO SCH (21:11)
[2020-10-25] MEDS: ALPRAZolam 0.5 MG TAB PO SCH (21:11)
[2020-10-25] MEDS: Fish Oil 1,000 MG CAP PO SCH (21:11)
[2020-10-26] MEDS: Sodium Chloride 0.9% 1,000 ML IV SCH ×2 (04:06→12:24)
[2020-10-26 06:07] LABS: #Eosinphils 0.1 thou/uL (0.0-0.7); #Lymphocytes 1.8 thou/uL (1.20-3.40); #Monocytes 0.6 thou/uL (0.11-0.59); #Neutrophils 4.5 thou/uL (1.40-6.50); %Basophils 0.4 % (0.0-1.0); %Eosinophils 1.7 % (0.0-10.0); %Lymphocytes 25.5 % (21.0-51.0); %Neutrophils 64.3 % (42.0-75.0); Hemoglobin 10.7 g/dL (12.0-16.0); Mean Corpuscular HGB CONC 33.6 g/dL (32.0-36.0); Mean Corpuscular Hemoglobin 32.5 pg (27.0-31.0); Mean Corpuscular Volume 96.5 fL (78.0-98.0); Mean Platelet Volume 8.1 fL (7.4-10.4); Platelet Count 169 thou/uL (130-400); RBC Distribution Width 14.1 % (11.5-14.5)
[2020-10-26 06:27] LABS: Anion Gap 12 mmol/L (10-20); BUN (Urea Nitrogen) 11 mg/dL (9.8-20.1); Calc. Creatinine Clearance 70 mL/min (70-130); Calcium 8.1 mg/dL (7.8-10.44); Carbon Dioxide 25 mmol/L (23-31); Chloride 107 mmol/L (98-107); Glucose 138 mg/dL (83-110); Magnesium 1.8 mg/dL (1.6-2.6); Phosphorus 2.6 mg/dL (2.3-4.7); Potassium 3.4 mmol/L (3.5-5.1); Sodium 141 mmol/L (136-145)
[2020-10-26] MEDS: Levothyroxine Sodium 100 MCG TAB PO SCH (06:33)
[2020-10-26] MEDS ORDERED: Ferrous Sulfate 325 MG TAB PO SCH (08:00)
[2020-10-26] MEDS: Multivit, Therapeutic 1 TAB PO SCH (08:52)
[2020-10-26] MEDS: Fish Oil 1,000 MG CAP PO SCH (08:52)
[2020-10-26] MEDS: Carvedilol 25 MG TAB PO SCH ×2 (08:52→16:34)
[2020-10-26] MEDS: Apixaban 5 MG TAB PO SCH (08:52)
[2020-10-26] MEDS ORDERED: Furosemide 20 MG TAB PO SCH (09:00)
[2020-10-26] MEDS ORDERED: glipiZIDE 5 MG TAB PO SCH (09:00)
[2020-10-26] MEDS: ALPRAZolam 0.5 MG TAB PO SCH (09:44)
[2020-10-26] MEDS ORDERED: Cholecalciferol (Vitamin D3) 400 UNITS TAB PO SCH (12:00)
[2020-10-26 16:27] VITALS: TEMP 98.5
[2020-10-26 17:56] VITALS: BP 145/72
== END 2020-10-26 17:56 | disposition home or self-care (01) | DRG 378 ==
LOC: ERS 21:37 → SURG B 10-24 04:23 → OBSVTOIN 10-24 16:02
PROVIDERS: ADMIT Student in an Organized Health Care Education/Training Program; ATTEND Internal Medicine
DX: K92.1 Melena (principal); K56.600 Partial intestinal obstruction, unspecified as to cause; I13.0 Hypertensive heart and chronic kidney disease with heart failure and stage 1 through stage 4 chronic kidney disease, or unspecified chronic kidney disease; R71.0 Precipitous drop in hematocrit; E03.9 Hypothyroidism, unspecified; I25.10 Atherosclerotic heart disease of native coronary artery without angina pectoris; I50.9 Heart failure, unspecified; N18.9 Chronic kidney disease, unspecified; E66.01 Morbid (severe) obesity due to excess calories; E11.22 Type 2 diabetes mellitus with diabetic chronic kidney disease; I08.1 Rheumatic disorders of both mitral and tricuspid valves; J44.9 Chronic obstructive pulmonary disease, unspecified; E78.5 Hyperlipidemia, unspecified; Z98.84 Bariatric surgery status; Z79.82 Long term (current) use of aspirin; Z79.899 Other long term (current) drug therapy; Z90.49 Acquired absence of other specified parts of digestive tract; Z90.710 Acquired absence of both cervix and uterus; Z90.89 Acquired absence of other organs; Z79.01 Long term (current) use of anticoagulants; I25.2 Old myocardial infarction; Z95.810 Presence of automatic (implantable) cardiac defibrillator; Z68.37 Body mass index [BMI] 37.0-37.9, adult; Z88.8 Allergy status to other drugs, medicaments and biological substances
CPT/HCPCS: 36415; 36416; 43752; 71045; 74018; 74176; 74250; 80048; 80053; 81001; 82274; 83605; 83690; 83735; 83880; 84100; 84484; 85025; 86850; 86900; 86901; 93005; 94760; 96374; 96375; C9113; G0378; J2270; J2405; Q0162; Q9963

== ENCOUNTER 2021-09-08 14:10 | Emergency (ER) | payer MEDICARE, BC ==
[2021-09-08 14:48] LABS: #Eosinphils 0.1 thou/uL (0.0-0.7); #Lymphocytes 1.4 thou/uL (1.20-3.40); #Monocytes 0.3 thou/uL (0.11-0.59); #Neutrophils 3.3 thou/uL (1.40-6.50); %Basophils 0.1 % (0.0-1.0); %Eosinophils 2.2 % (0.0-10.0); %Lymphocytes 28.2 % (21.0-51.0); %Monocytes 5.8 % (0.0-10.0); %Neutrophils 63.7 % (42.0-75.0); Mean Corpuscular HGB CONC 32.6 g/dL (32.0-36.0); Mean Corpuscular Hemoglobin 32.1 pg (27.0-31.0); Mean Corpuscular Volume 98.5 fL (78.0-98.0); Mean Platelet Volume 7.8 fL (7.4-10.4); Platelet Count 203 thou/uL (130-400); RBC Distribution Width 13.9 % (11.5-14.5); Red Blood Cell (RBC) Count 3.42 mill/uL (4.20-5.40); White Blood Cell (WBC) Count 5.1 thou/uL (4.8-10.8)
[2021-09-08] MEDS ORDERED: Morphine 4 MG/ML VIAL ONE (15:00)
[2021-09-08] MEDS ORDERED: Ondansetron PF 4 MG/2 ML Vial ONE (15:00)
[2021-09-08] MEDS ORDERED: Ondansetron ODT 4 MG TAB ONE (15:09)
[2021-09-08] MEDS ORDERED: Ketorolac Tromethamine 30 MG/ML VIAL ONE (15:09)
[2021-09-08 15:15] LABS: ALT (SGPT) 11 U/L (8-55); AST (SGOT) 15 U/L (5-34); Albumin 3.2 g/dL (3.4-4.8); Alkaline Phosphatase 177 U/L (40-110); Anion Gap 12 mmol/L (10-20); BUN (Urea Nitrogen) 7 mg/dL (9.8-20.1); Bilirubin, Total 0.8 mg/dL (0.2-1.2); Calc. Creatinine Clearance 0 mL/min (70-130); Calcium 8.3 mg/dL (7.8-10.44); Carbon Dioxide 26 mmol/L (23-31); Chloride 98 mmol/L (98-107); Globulin 2.8 g/dL (2.4-3.5); Glucose 174 mg/dL (83-110); Potassium 3.9 mmol/L (3.5-5.1); Sodium 132 mmol/L (136-145)
== END 2021-09-08 16:20 | disposition home or self-care (01) ==
LOC: ERS 14:10
DX: M25.511 Pain in right shoulder (principal); S42.201D Unspecified fracture of upper end of right humerus, subsequent encounter for fracture with routine healing; J44.9 Chronic obstructive pulmonary disease, unspecified; I25.2 Old myocardial infarction; E11.9 Type 2 diabetes mellitus without complications; E78.5 Hyperlipidemia, unspecified; E78.00 Pure hypercholesterolemia, unspecified; I10 Essential (primary) hypertension; W19.XXXA Unspecified fall, initial encounter
CPT/HCPCS: 36415; 80053; 85025; 96372; 96374; 96375; J1885; J2270; J2405; Q0162

== ENCOUNTER 2021-12-14 15:41 | Emergency (ER) | payer MEDICARE, BC ==
[2021-12-14] MEDS ORDERED: cloNIDine 0.1 MG TAB ONE (18:29)
[2021-12-14 18:52] LABS: #Basophils 0.1 thou/uL (0.0-0.2); #Eosinphils 0.2 thou/uL (0.0-0.7); #Lymphocytes 1.9 thou/uL (1.20-3.40); #Monocytes 0.4 thou/uL (0.11-0.59); #Neutrophils 3.7 thou/uL (1.40-6.50); %Basophils 1.6 % (0.0-1.0); %Eosinophils 2.7 % (0.0-10.0); %Lymphocytes 30.4 % (21.0-51.0); %Monocytes 6.4 % (0.0-10.0); %Neutrophils 58.9 % (42.0-75.0); Hemoglobin 13.1 g/dL (12.0-16.0); Mean Corpuscular HGB CONC 31.5 g/dL (32.0-36.0); Mean Corpuscular Volume 95.3 fL (78.0-98.0); Mean Platelet Volume 10.1 fL (7.4-10.4); Platelet Count 168 thou/uL (130-400); RBC Distribution Width 14.7 % (11.5-14.5); Red Blood Cell (RBC) Count 4.36 mill/uL (4.20-5.40); White Blood Cell (WBC) Count 6.3 thou/uL (4.8-10.8)
[2021-12-14 19:15] LABS: ALT (SGPT) 11 U/L (8-55); AST (SGOT) 16 U/L (5-34); Albumin 3.6 g/dL (3.4-4.8); Alkaline Phosphatase 145 U/L (40-110); Anion Gap 17 mmol/L (10-20); BUN (Urea Nitrogen) 8 mg/dL (9.8-20.1); Bilirubin, Total 0.5 mg/dL (0.2-1.2); Calc. Creatinine Clearance 0 mL/min (70-130); Calcium 9.1 mg/dL (7.8-10.44); Carbon Dioxide 25 mmol/L (23-31); Chloride 99 mmol/L (98-107); Estimated GFR 63; Globulin 3.2 g/dL (2.4-3.5); Glucose 169 mg/dL (83-110); Potassium 3.9 mmol/L (3.5-5.1); Protein, Total 6.8 g/dL (5.8-8.1); Sodium 137 mmol/L (136-145)
[2021-12-14 19:18] LABS: Bilirubin Negative (Negative); Blood, Urine Negative (Negative); Clarity Clear (Clear); Glucose, Urine (Dipstick) Normal (Negative); Ketone, Urine Negative (Negative); Leukocyte 25 Leu/uL (Negative); Nitrite Negative (Negative); Protein, Urine (Dipstick) Negative (Neg-Trace); RBC/HPF None Seen HPF (0-3); Specific Gravity, Urine 1.005 (1.002-1.036); Urobilinogen Normal mg/dL (Less than 2)
[2021-12-14 19:27] LABS: Bacteria/HPF 1+ HPF (None Seen)
== END 2021-12-14 21:10 | disposition home or self-care (01) ==
LOC: ERS 15:41
DX: I10 Essential (primary) hypertension (principal); N30.00 Acute cystitis without hematuria; J44.9 Chronic obstructive pulmonary disease, unspecified; I25.2 Old myocardial infarction; E11.9 Type 2 diabetes mellitus without complications; E78.5 Hyperlipidemia, unspecified; Z79.899 Other long term (current) drug therapy; Z79.01 Long term (current) use of anticoagulants; Z79.84 Long term (current) use of oral hypoglycemic drugs; Z79.82 Long term (current) use of aspirin
CPT/HCPCS: 36415; 80053; 81003; 81015; 83880; 84484; 85025; 87040; 87077; 87086; 87186; 93005

== ENCOUNTER 2021-12-21 14:14 | Emergency (ER) | payer MEDICARE, BC ==
[2021-12-21 14:49] LABS: #Basophils 0.1 thou/uL (0.0-0.2); #Eosinphils 0.1 thou/uL (0.0-0.7); #Lymphocytes 1.7 thou/uL (1.20-3.40); #Monocytes 0.5 thou/uL (0.11-0.59); #Neutrophils 5.4 thou/uL (1.40-6.50); %Basophils 1.3 % (0.0-1.0); %Eosinophils 1.3 % (0.0-10.0); %Lymphocytes 21.5 % (21.0-51.0); %Monocytes 6.5 % (0.0-10.0); %Neutrophils 69.4 % (42.0-75.0); Hemoglobin 13.7 g/dL (12.0-16.0); Mean Corpuscular HGB CONC 32.2 g/dL (32.0-36.0); Mean Corpuscular Hemoglobin 29.9 pg (27.0-31.0); Mean Corpuscular Volume 92.9 fL (78.0-98.0); Mean Platelet Volume 9.3 fL (7.4-10.4); Platelet Count 202 thou/uL (130-400); RBC Distribution Width 14.6 % (11.5-14.5); Red Blood Cell (RBC) Count 4.57 mill/uL (4.20-5.40); White Blood Cell (WBC) Count 7.8 thou/uL (4.8-10.8)
[2021-12-21 15:14] LABS: ALT (SGPT) 9 U/L (8-55); AST (SGOT) 14 U/L (5-34); Albumin 3.9 g/dL (3.4-4.8); Alkaline Phosphatase 146 U/L (40-110); Anion Gap 16 mmol/L (10-20); BUN (Urea Nitrogen) 8 mg/dL (9.8-20.1); Bilirubin, Total 0.6 mg/dL (0.2-1.2); Calc. Creatinine Clearance 0 mL/min (70-130); Calcium 9.3 mg/dL (7.8-10.44); Carbon Dioxide 26 mmol/L (23-31); Chloride 98 mmol/L (98-107); Estimated GFR 60; Globulin 3.3 g/dL (2.4-3.5); Glucose 174 mg/dL (83-110); Potassium 3.8 mmol/L (3.5-5.1); Protein, Total 7.2 g/dL (5.8-8.1); Sodium 136 mmol/L (136-145)
[2021-12-21 15:38] LABS: Bilirubin Negative (Negative); Blood, Urine Negative (Negative); Clarity Clear (Clear); Glucose, Urine (Dipstick) Normal (Negative); Ketone, Urine 10 mg/dL (Negative); Leukocyte Negative Leu/uL (Negative); Nitrite Negative (Negative); Protein, Urine (Dipstick) Negative (Neg-Trace); Specific Gravity, Urine 1.009 (1.002-1.036); Urobilinogen Normal mg/dL (Less than 2); pH, Urine 6.5 (5.0-9.0)
== END 2021-12-21 16:18 | disposition home or self-care (01) ==
LOC: ERS 14:14
DX: N30.00 Acute cystitis without hematuria (principal); I10 Essential (primary) hypertension; I25.2 Old myocardial infarction; E11.9 Type 2 diabetes mellitus without complications; E78.00 Pure hypercholesterolemia, unspecified; J44.9 Chronic obstructive pulmonary disease, unspecified; Z79.01 Long term (current) use of anticoagulants; Z79.84 Long term (current) use of oral hypoglycemic drugs; Z79.899 Other long term (current) drug therapy
CPT/HCPCS: 36415; 80053; 81003; 85025; 99284; J0744

== ENCOUNTER 2024-01-15 23:52 | Inpatient (IN) | payer MEDICARE, BC ==
[2024-01-16 01:01] LABS: #Basophils 0.07 10x3/uL (0.0-0.2); %Basophils 0.8 % (0.0-1.0); %Eosinophils 1.2 % (0.0-10.0); %Lymphocytes 30.3 % (21.0-51.0); %Monocytes 7.8 % (0.0-10.0); %Neutrophils 59.7 % (42.0-75.0); Hematocrit 37.7 % (36.0-47.0); Hemoglobin 12.8 g/dL (12.0-16.0); Mean Corpuscular Hemoglobin 31.5 pg (27.0-31.0); Mean Corpuscular Volume 92.9 fL (78.0-98.0); Mean Platelet Volume 11.2 fL (7.4-10.4); Platelet Count 229 10x3/uL (130-400); RBC Distribution Width 14.5 % (11.5-14.5); Red Blood Cell (RBC) Count 4.06 mill/uL (4.20-5.40)
[2024-01-16 01:20] LABS: ALT (SGPT) 12 U/L (8-55); AST (SGOT) 17 U/L (5-34); Albumin 3.5 g/dL (3.4-4.8); Alkaline Phosphatase 77 U/L (40-110); Anion Gap 18 mmol/L (10-20); BUN (Urea Nitrogen) 20 mg/dL (9.8-20.1); Bilirubin, Total 0.6 mg/dL (0.2-1.2); Calc. Creatinine Clearance 0 mL/min (70-130); Calcium 9.1 mg/dL (7.8-10.44); Carbon Dioxide 21 mmol/L (23-31); Chloride 105 mmol/L (98-107); Estimated GFR 41; Globulin 3.2 g/dL (2.4-3.5); Glucose 128 mg/dL (83-110); Potassium 4.1 mmol/L (3.5-5.1); Protein, Total 6.7 g/dL (5.8-8.1); Sodium 140 mmol/L (136-145)
[2024-01-16 01:29] LABS: Troponin I 0.015 ng/mL (< 0.028)
[2024-01-16] MEDS ORDERED: Ondansetron ODT 4 MG TAB SL PRN (06:30)
[2024-01-16] MEDS ORDERED: Ondansetron PF 4 MG/2 ML Vial IVP PRN (06:30)
[2024-01-16] MEDS ORDERED: Glucagon 1 MG/ML KIT IM PRN (07:58)
[2024-01-16] MEDS ORDERED: Dextrose 50% Abboject 50 ML SYRINGE SLOW IVP PRN (07:58)
[2024-01-16] MEDS ORDERED: Dextrose 5% in Water 1,000 ML IV PRN (07:58)
[2024-01-16 08:17] LABS: Troponin I 0.019 ng/mL (< 0.028)
[2024-01-16 11:42] VITALS: BMI 41.5
[2024-01-16 12:15] LABS: Troponin I 0.017 ng/mL (< 0.028)
[2024-01-16] MEDS: Famotidine 20 MG TAB PO SCH (14:38)
[2024-01-16] MEDS: Acetaminophen 325 MG TAB PO PRN (15:23)
[2024-01-16] MEDS: Carvedilol 6.25 MG TAB PO SCH (15:24)
[2024-01-16] MEDS: Apixaban 2.5 MG TAB PO SCH (20:46)
[2024-01-16] MEDS: Amitriptyline HCl 25 MG TAB PO SCH (20:47)
[2024-01-16] MEDS: Montelukast Sodium 10 mg Tablet PO SCH (20:47)
[2024-01-16] MEDS: Sacubitril 49 MG/Valsartan 51 MG TABLET PO SCH (20:47)
[2024-01-16] MEDS: Ranolazine ER 500 MG TAB PO SCH (20:47)
[2024-01-16] MEDS: Melatonin 3 MG TAB PO SCH (20:47)
[2024-01-16] MEDS: Atorvastatin Calcium 20 MG TAB PO SCH (20:47)
[2024-01-16] MEDS: ALPRAZolam 0.5 MG TAB PO SCH (20:47)
[2024-01-16] MEDS ORDERED: Carvedilol 25 MG TAB PO SCH (21:00)
[2024-01-16] MEDS ORDERED: Apixaban 2.5 MG TAB PO SCH (21:00)
[2024-01-16] MEDS: Magnesium 2 GM/50 ML(in water) 2 GM in Premix 1 BAG IVPB SCH (21:25)
[2024-01-17] MEDS: Magnesium 2 GM/50 ML(in water) 2 GM in Premix 1 BAG IVPB SCH (00:40)
[2024-01-17] MEDS: Levothyroxine Sodium 100 MCG TAB PO SCH (05:25)
[2024-01-17] MEDS: Insulin Regular, Human 100 UNIT/ML 10 ML VIAL SC PRN (05:26)
[2024-01-17 06:02] LABS: Anion Gap 15 mmol/L (10-20); BUN (Urea Nitrogen) 18 mg/dL (9.8-20.1); Calc. Creatinine Clearance 60 mL/min (70-130); Calcium 8.9 mg/dL (7.8-10.44); Carbon Dioxide 24 mmol/L (23-31); Chloride 104 mmol/L (98-107); Estimated GFR 42; Glucose 170 mg/dL (83-110); Sodium 139 mmol/L (136-145)
[2024-01-17] MEDS: Furosemide 20 MG TAB PO SCH (08:23)
[2024-01-17] MEDS: glipiZIDE 5 MG TAB PO SCH (08:23)
[2024-01-17] MEDS: Empagliflozin 10 MG TAB PO SCH (08:23)
[2024-01-17] MEDS: metFORMIN 500 MG TAB PO SCH (08:24)
[2024-01-17] MEDS ORDERED: Atorvastatin Calcium 20 MG TAB PO SCH (09:00)
[2024-01-17] MEDS ORDERED: Empagliflozin 10 MG TAB PO SCH (09:00)
[2024-01-17] MEDS: Benzonatate 100 MG CAP PO SCH ×2 (23:03→23:07)
[2024-01-18] MEDS: metFORMIN 500 MG TAB PO SCH (08:11)
[2024-01-18] MEDS: Apixaban 5 MG TAB PO SCH (08:12)
[2024-01-18 11:33] VITALS: BP 126/76; TEMP 98.2
== END 2024-01-18 11:52 | disposition home or self-care (01) | DRG 309 ==
LOC: ERS 23:52 → ERHOLD 01-16 06:17 → 2SE 01-16 10:17 → OBSVTOIN 01-17 13:54
PROVIDERS: ADMIT Student in an Organized Health Care Education/Training Program; ATTEND Internal Medicine
DX: I48.0 Paroxysmal atrial fibrillation (principal); I13.0 Hypertensive heart and chronic kidney disease with heart failure and stage 1 through stage 4 chronic kidney disease, or unspecified chronic kidney disease; I50.22 Chronic systolic (congestive) heart failure; Z68.41 Body mass index [BMI] 40.0-44.9, adult; N18.30 Chronic kidney disease, stage 3 unspecified; E11.22 Type 2 diabetes mellitus with diabetic chronic kidney disease; E78.5 Hyperlipidemia, unspecified; J44.9 Chronic obstructive pulmonary disease, unspecified; E78.00 Pure hypercholesterolemia, unspecified; E66.01 Morbid (severe) obesity due to excess calories; I95.1 Orthostatic hypotension; Z88.8 Allergy status to other drugs, medicaments and biological substances; Z79.899 Other long term (current) drug therapy; Z79.01 Long term (current) use of anticoagulants; Z90.49 Acquired absence of other specified parts of digestive tract; Z90.89 Acquired absence of other organs; Z90.710 Acquired absence of both cervix and uterus; Z79.84 Long term (current) use of oral hypoglycemic drugs; I25.2 Old myocardial infarction
CPT/HCPCS: 36415; 36416; 70450; 71045; 80048; 80053; 83735; 83880; 84484; 85025; 93005; 96374; G0378; J1815; J3475